=== PATIENT | female | born 2000 | race Hispanic/Latino ===

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

== ENCOUNTER 2021-09-01 17:19 | Emergency (ER) | payer OTHER ==
--- OUTSIDE RECORDS SUMMARY | 2021-09-01 17:24 | XMS REPORT | Continuity of Care Document ---
:2001 Author Organization [facility] Address [address] [place] [address] Care Team Providers Name Role Phone PRACHI HOPE Attending Clinician Unavailable ANDREA Attending Clinician Unavailable Chelly MARTE Attending Clinician Unavailable Aaron MARTE N Attending Clinician Stanley WALKER Attending Clinician Unavailable Rene GONZALEZ, L Attending Clinician Doctor Unassigned, Name Attending Clinician Unavailable Payers Payer Name Policy Type Policy Number Effective Date Expiration Date [facility] [id number] 2013 CHOICE MEDICAID 00:00:00 Problems Condition Condition Condition Status Onset Resolution Last Treating Co mments Source Name Details Category Date Date Treatment Clinician Date Low weight Low weight Disease Active 2018- U nivers 3-20 ity of 00:00: [address] Influenza Influenza Disease Active Uni vers A A 3-20 ity of 00:00: [address] UTI UTI Disease Active 2012-06 Univers (urinary (urinary 2-19 ity of tract tract 00:00: [place] infection) infection) 00 [place] [facility] Branch Allergies, Adverse Reactions, Alerts Allergy Allergy Status Severity Reaction(s) Onset Inactive Treating Comm ents Source Name Type Date Date Clinician NO KNOWN Drug Active Univers ALLERGIE Class ity of [facility] Social History Social Habit Start Date Stop Date Quantity Comments Source Sex Assigned At [facility] Alcohol intake 2019-08-04 2019-08-04 [facility] 00:00:00 00:00:00 [facility] Smoking Status Start Date Stop Date Source Never smoker [facility] Medications Ordered Filled Start Stop Current Ordering Indication Dosage Frequency Signature Comments Components Source Medication Medication Date Date Medication? Clinician (SIG) Name Name cetirizine 2020-0 Yes [id number] 10mg Take 1 U nivers 10 mg 4-20 tablet by ity of tablet 00:00: mouth [place] 00 daily. Medical Branch cetirizine 2020-0 Yes [id number] 10mg Take 1 U nivers 10 mg 4-20 tablet by ity of tablet 00:00: mouth [place] 00 daily. Medical Branch nitrofurant 2020-0 Yes Take by Un ammon oin 50 mg 3-02 mouth. ity of capsule 14:23: [place] [address] Medical Branch nitrofurant 2020-0 Yes Take by Un ammon oin 50 mg 3-02 mouth. ity of capsule 14:23: [address] Branch nitrofurant 2020-0 Yes Take by Un ammon oin 50 mg 3-02 mouth. ity of capsule 14:23: [address] Branch nitrofurant 2020-0 Yes Take by Un ammon oin 50 mg 3-02 mouth. ity of capsule 14:23: [place] [address] Medical Branch hydrocortis 2020-0 Yes [id number] Apply to Univers one 2.5 % 3-02 affected ity of cream 00:00: area(s) 2 [place] 00 (two) Medical times Branch daily. hydrocortis 2020-0 Yes [id number] Apply to Univers one 2.5 % 3-02 affected ity of cream 00:00: area(s) 2 [place] 00 (two) Medical times Branch daily. hydrocortis 2020-0 Yes [id number] Apply to Univers one 2.5 % 3-02 affected ity of cream 00:00: area(s) 2 [place] 00 (two) Medical times Branch daily. hydrocortis 2020-0 Yes [id number] Apply to Univers one 2.5 % 3-02 affected ity of cream 00:00: area(s) 2 [place] 00 (two) Medical times Branch daily. cetirizine 2020-0 2020- No [id number] 10mg Take 1 Univers 10 mg 3-02 04-02 tablet by ity of tablet 00:00: 04:59 mouth [place] 00 :00 daily for Medical 30 days. Branch cetirizine 2020-0 2020- No [id number] 10mg Take 1 Univers 10 mg 3-02 04-02 tablet by ity of tablet 00:00: 04:59 mouth [place] 00 :00 daily for Medical 30 days. Branch tretinoin 2020-0 Yes [id number] Apply to Univers 0.05 % 2-03 area(s) at ity of cream 00:00: bedtime. [place] [facility] Branch clindamycin 2020-0 Yes [id number] Apply to Univers 1 % gel 2-03 affected ity of 00:00: area(s) [place] 00 every Medical morning. Branch tretinoin 2020-0 Yes [id number] Apply to Univers 0.05 % 2-03 area(s) at ity of cream 00:00: bedtime. [place] [facility] clindamycin 2020-0 Yes [id number] Apply to Univers 1 % gel 2-03 affected ity of 00:00: area(s) [place] 00 every Medical morning. Branch tretinoin 2020-0 Yes [id number] Apply to Univers 0.05 % 2-03 area(s) at ity of cream 00:00: bedtime. [place] [facility] clindamycin 2020-0 Yes [id number] Apply to Univers 1 % gel 2-03 affected ity of 00:00: area(s) [place] 00 every Medical morning. Branch tretinoin 2020-0 Yes [id number] Apply to Univers 0.05 % 2-03 area(s) at ity of cream 00:00: bedtime. [place] [facility] clindamycin 2020-0 Yes [id number] Apply to Univers 1 % gel 2-03 affected ity of 00:00: area(s) [place] 00 every Medical morning. Branch tretinoin 2020-0 Yes [id number] Apply to Univers 0.05 % 2-03 area(s) at ity of cream 00:00: bedtime. [place] [facility] clindamycin 2020-0 Yes [id number] Apply to Univers 1 % gel 2-03 affected ity of 00:00: area(s) [place] 00 every Medical morning. Branch tretinoin 2020-0 Yes [id number] Apply to Univers 0.05 % 2-03 area(s) at ity of cream 00:00: bedtime. [place] [facility] clindamycin 2020-0 Yes [id number] Apply to Univers 1 % gel 2-03 affected ity of 00:00: area(s) [place] 00 every Medical morning. Branch amoxicillin 2020-0 Yes Univer s -clavulanat 1-24 ity of e 875-125 00:00: [place] mg per 00 Medical tablet Branch proMETHazin 2020-0 Yes Univer s e 25 mg 1-24 ity of tablet 00:00: 00 Medical Branch amoxicillin 2020-0 Yes Univer s -clavulanat 1-24 ity of e 875-125 00:00: [place] mg per 00 Medical tablet Branch proMETHazin 2020-0 Yes Univer s e 25 mg 1-24 ity of tablet 00:00: 00 Medical Branch amoxicillin 2020-0 Yes Univer s -clavulanat 1-24 ity of e 875-125 00:00: [place] mg per 00 Medical tablet Branch proMETHazin 2020-0 Yes Univer s e 25 mg 1-24 ity of tablet 00:00: 00 Medical Branch amoxicillin 2020-0 Yes Univer s -clavulanat 1-24 ity of e 875-125 00:00: [place] mg per 00 Medical tablet Branch proMETHazin 2020-0 Yes Univer s e 25 mg 1-24 ity of tablet 00:00: Medical Branch No known No Univers medications ity of [facility] Immunizations Ordered Immunization Filled Immunization Date Status Commen ts Source Name Name Meningococcal 2017-02-28 Completed University of Polysaccharide 00:00:00 [place] Medi katelyn (groups A, C, Y and Branc h W-135) conjugate vaccine (MCV4P) Influenza Virus 2017-02-28 Completed Universit y of Vaccine Quad IM 3+ 00:00:00 [facility] Meningococcal 2017-02-28 Completed University of Polysaccharide 00:00:00 [place] Medi katelyn (groups A, C, Y and Branc h W-135) conjugate vaccine (MCV4P) Influenza Virus 2017-02-28 Completed Universit y of Vaccine Quad IM 3+ 00:00:00 [facility] Meningococcal 2017-02-28 Completed University of Polysaccharide 00:00:00 [place] Medi katelyn (groups A, C, Y and Branc h W-135) conjugate vaccine (MCV4P) Influenza Virus 2017-02-28 Completed Universit y of Vaccine Quad IM 3+ 00:00:00 [facility] Meningococcal 2017-02-28 Completed University of Polysaccharide 00:00:00 [place] Medi katelyn (groups A, C, Y and Branc h W-135) conjugate vaccine (MCV4P) Influenza Virus 2017-02-28 Completed Universit y of Vaccine Quad IM 3+ 00:00:00 [facility] Meningococcal 2017-02-28 Completed University of Polysaccharide 00:00:00 [place] Medi katelyn (groups A, C, Y and Branc h W-135) conjugate vaccine (MCV4P) Influenza Virus 2017-02-28 Completed Universit y of Vaccine Quad IM 3+ 00:00:00 [facility] Meningococcal 2017-02-28 Completed University of Polysaccharide 00:00:00 [place] Medi katelyn (groups A, C, Y and Branc h W-135) conjugate vaccine (MCV4P) Influenza Virus 2017-02-28 Completed Universit y of Vaccine Quad IM 3+ 00:00:00 [facility] Meningococcal 2017-02-28 Completed University of Polysaccharide 00:00:00 [place] Medi katelyn (groups A, C, Y and Branc h W-135) conjugate vaccine (MCV4P) Influenza Virus 2017-02-28 Completed Universit y of Vaccine Quad IM 3+ 00:00:00 [facility] Influenza Virus 2016-03-01 Completed Universit y of Vaccine Quad IM 3+ 00:00:00 [facility] Influenza Virus 2016-03-01 Completed Universit y of Vaccine Quad IM 3+ 00:00:00 [facility] Influenza Virus 2016-03-01 Completed Universit y of Vaccine Quad IM 3+ 00:00:00 [facility] Influenza Virus 2016-03-01 Completed Universit y of Vaccine Quad IM 3+ 00:00:00 [facility] Influenza Virus 2016-03-01 Completed Universit y of Vaccine Quad IM 3+ 00:00:00 [facility] Influenza Virus 2016-03-01 Completed Universit y of Vaccine Quad IM 3+ 00:00:00 [facility] Influenza Virus 2016-03-01 Completed Universit y of Vaccine Quad IM 3+ 00:00:00 [facility] Influenza Virus 2015-03-12 Completed Universit y of Vaccine Quad IM 3+ 00:00:00 [facility] Influenza Virus 2015-03-12 Completed Universit y of Vaccine Quad IM 3+ 00:00:00 [facility] Influenza Virus 2015-03-12 Completed Universit y of Vaccine Quad IM 3+ 00:00:00 [facility] Influenza Virus 2015-03-12 Completed Universit y of Vaccine Quad IM 3+ 00:00:00 [facility] Influenza Virus 2015-03-12 Completed Universit y of Vaccine Quad IM 3+ 00:00:00 [facility] Influenza Virus 2015-03-12 Completed Universit y of Vaccine Quad IM 3+ 00:00:00 [facility] Influenza Virus 2015-03-12 Completed Universit y of Vaccine Quad IM 3+ 00:00:00 [facility] Influenza Virus 2014-05-20 Completed Universit y of Vaccine Quad IM 3+ 00:00:00 [facility] Influenza Virus 2014-05-20 Completed Universit y of Vaccine Quad IM 3+ 00:00:00 [facility] Influenza Virus 2014-05-20 Completed Universit y of Vaccine Quad IM 3+ 00:00:00 [facility] Influenza Virus 2014-05-20 Completed Universit y of Vaccine Quad IM 3+ 00:00:00 [facility] Influenza Virus 2014-05-20 Completed Universit y of Vaccine Quad IM 3+ 00:00:00 [facility] Influenza Virus 2014-05-20 Completed Universit y of Vaccine Quad IM 3+ 00:00:00 [facility] Influenza Virus 2014-05-20 Completed Universit y of Vaccine Quad IM 3+ 00:00:00 [facility] Influenza Virus 2013-05-22 Completed Universit y of Vaccine (3+ yrs) 00:00:00 [facility] Influenza Virus 2013-05-22 Completed Universit y of Vaccine (3+ yrs) 00:00:00 [facility] Influenza Virus 2013-05-22 Completed Universit y of Vaccine (3+ yrs) 00:00:00 [facility] Influenza Virus 2013-05-22 Completed Universit y of Vaccine (3+ yrs) 00:00:00 [facility] Influenza Virus 2013-05-22 Completed Universit y of Vaccine (3+ yrs) 00:00:00 [facility] Influenza Virus 2013-05-22 Completed Universit y of Vaccine (3+ yrs) 00:00:00 [facility] Influenza Virus 2013-05-22 Completed Universit y of Vaccine (3+ yrs) 00:00:00 [facility] Influenza Virus 2012-03-25 Completed Universit y of Vaccine 00:00:00 [facility] Meningococcal Vaccine 2012-03-25 Completed Uni versity of 00:00:00 [facility] Tdap 2012-03-25 Completed University of 00:00:00 [facility] Influenza Virus 2012-03-25 Completed Universit y of Vaccine 00:00:00 [facility] Influenza Virus 2012-03-25 Completed Universit y of Vaccine 00:00:00 [facility] Meningococcal Vaccine 2012-03-25 Completed Uni versity of 00:00:00 [facility] Tdap 2012-03-25 Completed University of 00:00:00 [facility] Meningococcal Vaccine 2012-03-25 Completed Uni versity of 00:00:00 [facility] Tdap 2012-03-25 Completed University of 00:00:00 [facility] Influenza Virus 2012-03-25 Completed Universit y of Vaccine 00:00:00 [facility] Meningococcal Vaccine 2012-03-25 Completed Uni versity of 00:00:00 [facility] Tdap 2012-03-25 Completed University of 00:00:00 [facility] Influenza Virus 2012-03-25 Completed Universit y of Vaccine 00:00:00 [facility] Meningococcal Vaccine 2012-03-25 Completed Uni versity of 00:00:00 [facility] Tdap 2012-03-25 Completed University of 00:00:00 [facility] Influenza Virus 2012-03-25 Completed Universit y of Vaccine 00:00:00 [facility] Meningococcal Vaccine 2012-03-25 Completed Uni versity of 00:00:00 [facility] Tdap 2012-03-25 Completed University of 00:00:00 [facility] Influenza Virus 2012-03-25 Completed Universit y of Vaccine 00:00:00 [facility] Meningococcal Vaccine 2012-03-25 Completed Uni versity of 00:00:00 [facility] Tdap 2012-03-25 Completed University of 00:00:00 [facility] HPV 2011-10-13 Completed University of 00:00:00 [facility] HPV 2011-10-13 Completed University of 00:00:00 [facility] HPV 2011-10-13 Completed University of 00:00:00 [facility] HPV 2011-10-13 Completed University of 00:00:00 [facility] HPV 2011-10-13 Completed University of 00:00:00 [facility] HPV 2011-10-13 Completed University of 00:00:00 [facility] HPV 2011-10-13 Completed University of 00:00:00 [facility] HPV 2011-06-15 Completed University of 00:00:00 [facility] HPV 2011-06-15 Completed University of 00:00:00 [facility] HPV 2011-06-15 Completed University of 00:00:00 [facility] HPV 2011-06-15 Completed University of 00:00:00 [facility] HPV 2011-06-15 Completed University of 00:00:00 [facility] HPV 2011-06-15 Completed University of 00:00:00 [facility] HPV 2011-06-15 Completed University of 00:00:00 [facility] HPV 2011-04-17 Completed University of 00:00:00 [facility] Influenza Virus 2011-04-17 Completed Universit y of Vaccine 00:00:00 [facility] HPV 2011-04-17 Completed University of 00:00:00 [facility] HPV 2011-04-17 Completed University of 00:00:00 [facility] Influenza Virus 2011-04-17 Completed Universit y of Vaccine 00:00:00 [facility] Influenza Virus 2011-04-17 Completed Universit y of Vaccine 00:00:00 [facility] HPV 2011-04-17 Completed University of 00:00:00 [facility] Influenza Virus 2011-04-17 Completed Universit y of Vaccine 00:00:00 [facility] HPV 2011-04-17 Completed University of 00:00:00 [facility] Influenza Virus 2011-04-17 Completed Universit y of Vaccine 00:00:00 [facility] HPV 2011-04-17 Completed University of 00:00:00 [facility] Influenza Virus 2011-04-17 Completed Universit y of Vaccine 00:00:00 [facility] HPV 2011-04-17 Completed University of 00:00:00 [facility] Influenza Virus 2011-04-17 Completed Universit y of Vaccine 00:00:00 [facility] Influenza Virus 2010-03-01 Completed Universit y of Vaccine 00:00:00 [facility] Influenza Virus 2010-03-01 Completed Universit y of Vaccine 00:00:00 [facility] Influenza Virus 2010-03-01 Completed Universit y of Vaccine 00:00:00 [facility] Influenza Virus 2010-03-01 Completed Universit y of Vaccine 00:00:00 [facility] Influenza Virus 2010-03-01 Completed Universit y of Vaccine 00:00:00 [facility] Influenza Virus 2010-03-01 Completed Universit y of Vaccine 00:00:00 [facility] Influenza Virus 2010-03-01 Completed Universit y of Vaccine 00:00:00 [facility] H1n1 Vaccine 2009-07-29 Completed University o f 00:00:00 [facility] H1n1 Vaccine 2009-07-29 Completed University o f 00:00:00 [facility] H1n1 Vaccine 2009-07-29 Completed University o f 00:00:00 [facility] H1n1 Vaccine 2009-07-29 Completed University o f 00:00:00 [facility] H1n1 Vaccine 2009-07-29 Completed University o f 00:00:00 [facility] H1n1 Vaccine 2009-07-29 Completed University o f 00:00:00 [facility] H1n1 Vaccine 2009-07-29 Completed University o f 00:00:00 [facility] H1n1 Vaccine 2009-06-28 Completed University o f 00:00:00 [facility] H1n1 Vaccine 2009-06-28 Completed University o f 00:00:00 [facility] H1n1 Vaccine 2009-06-28 Completed University o f 00:00:00 [facility] H1n1 Vaccine 2009-06-28 Completed University o f 00:00:00 [facility] H1n1 Vaccine 2009-06-28 Completed University o f 00:00:00 [facility] H1n1 Vaccine 2009-06-28 Completed University o f 00:00:00 [facility] H1n1 Vaccine 2009-06-28 Completed University o f 00:00:00 [facility] Influenza Virus 2009-02-22 Completed Universit y of Vaccine Nasal 00:00:00 [facility] Influenza Virus 2009-02-22 Completed Universit y of Vaccine Nasal 00:00:00 [facility] Influenza Virus 2009-02-22 Completed Universit y of Vaccine Nasal 00:00:00 [facility] Influenza Virus 2009-02-22 Completed Universit y of Vaccine Nasal 00:00:00 [facility] Influenza Virus 2009-02-22 Completed Universit y of Vaccine Nasal 00:00:00 [facility] Influenza Virus 2009-02-22 Completed Universit y of Vaccine Nasal 00:00:00 [facility] Influenza Virus 2009-02-22 Completed Universit y of Vaccine Nasal 00:00:00 [facility] PPD (TB) 2008-04-14 Completed University of 00:00:00 [facility] PPD (TB) 2008-04-14 Completed University of 00:00:00 [facility] PPD (TB) 2008-04-14 Completed University of 00:00:00 [facility] PPD (TB) 2008-04-14 Completed University of 00:00:00 [facility] PPD (TB) 2008-04-14 Completed University of 00:00:00 [facility] PPD (TB) 2008-04-14 Completed University of 00:00:00 [facility] PPD (TB) 2008-04-14 Completed University of 00:00:00 [facility] Influenza Virus 2008-04-09 Completed Universit y of Vaccine Nasal 00:00:00 [facility] Influenza Virus 2008-04-09 Completed Universit y of Vaccine Nasal 00:00:00 [facility] Influenza Virus 2008-04-09 Completed Universit y of Vaccine Nasal 00:00:00 [facility] Influenza Virus 2008-04-09 Completed Universit y of Vaccine Nasal 00:00:00 [facility] Influenza Virus 2008-04-09 Completed Universit y of Vaccine Nasal 00:00:00 [facility] Influenza Virus 2008-04-09 Completed Universit y of Vaccine Nasal 00:00:00 [facility] Influenza Virus 2008-04-09 Completed Universit y of Vaccine Nasal 00:00:00 [facility] Influenza Virus 2006-03-29 Completed Universit y of Vaccine 00:00:00 [facility] Varicella 2006-03-29 Completed University of (varivax)(chicken 00:00:00 [facility] edical pox) [place] HEPATITIS A 2006-03-29 Completed University of 00:00:00 [facility] Influenza Virus 2006-03-29 Completed Universit y of Vaccine 00:00:00 [facility] Varicella 2006-03-29 Completed University of (varivax)(chicken 00:00:00 [facility] edical pox) Branch HEPATITIS A 2006-03-29 Completed University of 00:00:00 [facility] Influenza Virus 2006-03-29 Completed Universit y of Vaccine 00:00:00 [facility] Varicella 2006-03-29 Completed University of (varivax)(chicken 00:00:00 [facility] edical pox) Branch HEPATITIS A 2006-03-29 Completed University of 00:00:00 [facility] Influenza Virus 2006-03-29 Completed Universit y of Vaccine 00:00:00 [facility] Varicella 2006-03-29 Completed University of (varivax)(chicken 00:00:00 [facility] edical pox) Branch HEPATITIS A 2006-03-29 Completed University of 00:00:00 [facility] Influenza Virus 2006-03-29 Completed Universit y of Vaccine 00:00:00 [facility] Varicella 2006-03-29 Completed University of (varivax)(chicken 00:00:00 [place] [facility] edical pox) Branch HEPATITIS A 2006-03-29 Completed University of 00:00:00 [facility] HEPATITIS A 2006-03-29 Completed University of 00:00:00 [facility] Influenza Virus 2006-03-29 Completed Universit y of Vaccine 00:00:00 [facility] Influenza Virus 2006-03-29 Completed Universit y of Vaccine 00:00:00 [facility] Varicella 2006-03-29 Completed University of (varivax)(chicken 00:00:00 [facility] edical pox) Branch Varicella 2006-03-29 Completed University of (varivax)(chicken 00:00:00 [facility] edical pox) Branch HEPATITIS A 2006-03-29 Completed University of 00:00:00 [facility] MMR 2006-01-11 Completed University of 00:00:00 [facility] MMR 2006-01-11 Completed University of 00:00:00 [facility] MMR 2006-01-11 Completed University of 00:00:00 [facility] MMR 2006-01-11 Completed University of 00:00:00 [facility] MMR 2006-01-11 Completed University of 00:00:00 [facility] MMR 2006-01-11 Completed University of 00:00:00 [facility] MMR 2006-01-11 Completed University of 00:00:00 [facility] MMR 2005-06-12 Completed University of 00:00:00 [facility] Pneumococcal 7 2005-06-12 Completed University of Conjugate, PCV7 00:00:00 [facility] ical (Prevnar7) Branch Polio (IPV/OPV) 2005-06-12 Completed Universit y of 00:00:00 [facility] Varicella 2005-06-12 Completed University of (varivax)(chicken 00:00:00 [facility] edical pox) Branch DTAP 2005-06-12 Completed University of 00:00:00 [facility] HEPATITIS A 2005-06-12 Completed University of 00:00:00 [facility] Hep B, Adol or Pedi 2005-06-12 Completed Unive rsity of Dosage 00:00:00 [facility] MMR 2005-06-12 Completed University of 00:00:00 [facility] Pneumococcal 7 2005-06-12 Completed University of Conjugate, PCV7 00:00:00 [place] Med ical (Prevnar7) Branch Polio (IPV/OPV) 2005-06-12 Completed Universit y of 00:00:00 [facility] Varicella 2005-06-12 Completed University of (varivax)(chicken 00:00:00 [place] M edical pox) Branch DTAP 2005-06-12 Completed University of 00:00:00 [facility] HEPATITIS A 2005-06-12 Completed University of 00:00:00 [facility] Hep B, Adol or Pedi 2005-06-12 Completed Unive rsity of Dosage 00:00:00 [facility] MMR 2005-06-12 Completed University of 00:00:00 [facility] Pneumococcal 7 2005-06-12 Completed University of Conjugate, PCV7 00:00:00 [facility] ical (Prevnar7) Branch Polio (IPV/OPV) 2005-06-12 Completed Universit y of 00:00:00 [facility] Varicella 2005-06-12 Completed University of (varivax)(chicken 00:00:00 [place] M edical pox) Branch DTAP 2005-06-12 Completed University of 00:00:00 [facility] HEPATITIS A 2005-06-12 Completed University of 00:00:00 [facility] Hep B, Adol or Pedi 2005-06-12 Completed Unive rsity of Dosage 00:00:00 [facility] MMR 2005-06-12 Completed University of 00:00:00 [facility] Pneumococcal 7 2005-06-12 Completed University of Conjugate, PCV7 00:00:00 [place] Med ical (Prevnar7) Branch Polio (IPV/OPV) 2005-06-12 Completed Universit y of 00:00:00 [facility] Varicella 2005-06-12 Completed University of (varivax)(chicken 00:00:00 [place] M edical pox) Branch DTAP 2005-06-12 Completed University of 00:00:00 [facility] HEPATITIS A 2005-06-12 Completed University of 00:00:00 [facility] DTAP 2005-06-12 Completed University of 00:00:00 [facility] Hep B, Adol or Pedi 2005-06-12 Completed Unive rsity of Dosage 00:00:00 [facility] MMR 2005-06-12 Completed University of 00:00:00 [facility] Pneumococcal 7 2005-06-12 Completed University of Conjugate, PCV7 00:00:00 [place] [facility] (Prevnar7) [facility] Polio (IPV/OPV) 2005-06-12 Completed Universit y of 00:00:00 [facility] Varicella 2005-06-12 Completed University of (varivax)(chicken 00:00:00 [place] [facility] pox) [facility] HEPATITIS A 2005-06-12 Completed University of 00:00:00 [facility] DTAP 2005-06-12 Completed University of 00:00:00 [facility] HEPATITIS A 2005-06-12 Completed University of 00:00:00 [facility] Hep B, Adol or Pedi 2005-06-12 Completed Unive rsity of Dosage 00:00:00 [facility] MMR 2005-06-12 Completed University of 00:00:00 [facility] Pneumococcal 7 2005-06-12 Completed University of Conjugate, PCV7 00:00:00 [place] [facility] (Prevnar7) [facility] Hep B, Adol or Pedi 2005-06-12 Completed Unive rsity of Dosage 00:00:00 [facility] Polio (IPV/OPV) 2005-06-12 Completed Universit y of 00:00:00 [facility] Varicella 2005-06-12 Completed University of (varivax)(chicken 00:00:00 [place] [facility] pox) [facility] MMR 2005-06-12 Completed [facility] of 00:00:00 [facility] Pneumococcal 7 2005-06-12 Completed University of Conjugate, PCV7 00:00:00 [facility] (Prevnar7) [facility] Polio (IPV/OPV) 2005-06-12 Completed Universit y of 00:00:00 [facility] Varicella 2005-06-12 Completed University of (varivax)(chicken 00:00:00 [facility] pox) [facility] DTAP 2005-06-12 Completed [facility] of 00:00:00 [facility] HEPATITIS A 2005-06-12 Completed University of 00:00:00 [facility] Hep B, Adol or Pedi 2005-06-12 Completed Unive rsity of Dosage 00:00:00 [facility] DTAP 2005-03-06 Completed University of 00:00:00 [facility] DTAP 2005-03-06 Completed [facility] 00:00:00 [facility] DTAP 2005-03-06 Completed [facility] 00:00:00 [facility] DTAP 2005-03-06 Completed [facility] 00:00:00 [facility] DTAP 2005-03-06 Completed [facility] 00:00:00 [facility] DTAP 2005-03-06 Completed [facility] 00:00:00 [facility] DTAP 2005-03-06 Completed [facility] 00:00:00 [facility] Polio (IPV/OPV) 2004-07-23 Completed Universit y of 00:00:00 [facility] Polio (IPV/OPV) 2004-07-23 Completed [facility]it y of 00:00:00 [facility] Polio (IPV/OPV) 2004-07-23 Completed Universit y of 00:00:00 [facility] Polio (IPV/OPV) 2004-07-23 Completed Universit y of 00:00:00 [facility] Polio (IPV/OPV) 2004-07-23 Completed Universit y of 00:00:00 [facility] Polio (IPV/OPV) 2004-07-23 Completed Universit y of 00:00:00 [facility] Polio (IPV/OPV) 2004-07-23 Completed Universit y of 00:00:00 [facility] Polio (IPV/OPV) 2003-10-02 Completed Universit y of 00:00:00 [facility] Polio (IPV/OPV) 2003-10-02 Completed Universit y of 00:00:00 [facility] Polio (IPV/OPV) 2003-10-02 Completed Universit y of 00:00:00 [facility] Polio (IPV/OPV) 2003-10-02 Completed Universit y of 00:00:00 [facility] Polio (IPV/OPV) 2003-10-02 Completed Universit y of 00:00:00 [facility] Polio (IPV/OPV) 2003-10-02 Completed Universit y of 00:00:00 [facility] Polio (IPV/OPV) 2003-10-02 Completed Universit y of 00:00:00 [facility] Polio (IPV/OPV) 2003-07-25 Completed Universit y of 00:00:00 [facility] Polio (IPV/OPV) 2003-07-25 Completed Universit y of 00:00:00 [facility] Polio (IPV/OPV) 2003-07-25 Completed Universit y of 00:00:00 [facility] Polio (IPV/OPV) 2003-07-25 Completed Universit y of 00:00:00 [facility] Polio (IPV/OPV) 2003-07-25 Completed Universit y of 00:00:00 [facility] Polio (IPV/OPV) 2003-07-25 Completed Universit y of 00:00:00 [facility] Polio (IPV/OPV) 2003-07-25 Completed Universit y of 00:00:00 [facility] DTAP 2003-03-30 Completed [facility] of 00:00:00 [facility] DTAP 2003-03-30 Completed [facility] 00:00:00 [facility] DTAP 2003-03-30 Completed [facility] 00:00:00 [facility] DTAP 2003-03-30 Completed [facility] 00:00:00 [facility] DTAP 2003-03-30 Completed [facility] 00:00:00 [facility] DTAP 2003-03-30 Completed [facility] 00:00:00 [facility] DTAP 2003-03-30 Completed [facility] 00:00:00 [facility] Polio (IPV/OPV) 2002-11-08 Completed Universit y of 00:00:00 [facility] Polio (IPV/OPV) 2002-11-08 Completed Universit y of 00:00:00 [facility] Polio (IPV/OPV) 2002-11-08 Completed Universit y of 00:00:00 [facility] Polio (IPV/OPV) 2002-11-08 Completed [facility]it y of 00:00:00 [facility] Polio (IPV/OPV) 2002-11-08 Completed Universit y of 00:00:00 [facility] Polio (IPV/OPV) 2002-11-08 Completed [facility]it y of 00:00:00 [facility] Polio (IPV/OPV) 2002-11-08 Completed [facility]it [facility] of 00:00:00 [facility] Polio (IPV/OPV) 2002-07-26 Completed [facility]it y of 00:00:00 [facility] Polio (IPV/OPV) 2002-07-26 Completed Universit y of 00:00:00 [facility] Polio (IPV/OPV) 2002-07-26 Completed Universit y of 00:00:00 [facility] Polio (IPV/OPV) 2002-07-26 Completed [facility]it y of 00:00:00 [facility] Polio (IPV/OPV) 2002-07-26 Completed Universit y of 00:00:00 [facility] Polio (IPV/OPV) 2002-07-26 Completed Universit y of 00:00:00 [facility] Polio (IPV/OPV) 2002-07-26 Completed Universit y of 00:00:00 [facility] MMR 2002-03-04 Completed [facility] 00:00:00 [facility] MMR 2002-03-04 Completed [facility] 00:00:00 [facility] MMR 2002-03-04 Completed [facility] 00:00:00 [facility] MMR 2002-03-04 Completed [facility] 00:00:00 [facility] MMR 2002-03-04 Completed [facility] 00:00:00 [facility] MMR 2002-03-04 Completed [facility] of 00:00:00 [facility] MMR 2002-03-04 Completed [facility] of 00:00:00 [facility] Polio (IPV/OPV) 2001 Completed Universit y of 00:00:00 [facility] Polio (IPV/OPV) 2001 Completed Universit y of 00:00:00 [facility] Polio (IPV/OPV) 2001 Completed Universit y of 00:00:00 [facility] Polio (IPV/OPV) 2001 Completed Universit y of 00:00:00 [facility] Polio (IPV/OPV) 2001 Completed [facility]it y of 00:00:00 [facility] Polio (IPV/OPV) 2001 Completed Universit y of 00:00:00 [facility] Polio (IPV/OPV) 2001 Completed [facility]it y of 00:00:00 [facility] Polio (IPV/OPV) 2001 Completed [facility]it y of 00:00:00 [facility] DTAP 2001 Completed [facility] of 00:00:00 [facility] Polio (IPV/OPV) 2001 Completed Universit y of 00:00:00 [facility] DTAP 2001 Completed University of 00:00:00 [facility] Polio (IPV/OPV) 2001 Completed Universit y of 00:00:00 [facility] DTAP 2001 Completed [facility] of 00:00:00 [facility] Polio (IPV/OPV) 2001 Completed Universit y of 00:00:00 [facility] DTAP 2001 Completed [facility] of 00:00:00 [facility] DTAP 2001 Completed [facility] of 00:00:00 [facility] Polio (IPV/OPV) 2001 Completed Universit y of 00:00:00 [facility] DTAP 2001 Completed [facility] of 00:00:00 [facility] Polio (IPV/OPV) 2001 Completed Universit [facility] of 00:00:00 [facility] Polio (IPV/OPV) 2001 Completed [facility]it [facility] of 00:00:00 [facility] DTAP 2001 Completed [facility] of 00:00:00 [facility] Pneumococcal 7 2001 Completed University of Conjugate, PCV7 00:00:00 [facility] (Prevnar7) [facility] Polio (IPV/OPV) 2001 Completed Universit [facility] of 00:00:00 [facility] DTAP 2001 Completed [facility] of 00:00:00 [facility] HIB 4 Dose Schedule 2001 Completed Unive rsity of 00:00:00 [facility] Pneumococcal 7 2001 Completed University of Conjugate, PCV7 00:00:00 [facility] (Prevnar7) [facility] Polio (IPV/OPV) 2001 Completed Universit [facility] of 00:00:00 [facility] DTAP 2001 Completed [facility] of 00:00:00 [facility] HIB 4 Dose Schedule 2001 Completed Unive rsity of 00:00:00 [facility] Pneumococcal 7 2001 Completed University of Conjugate, PCV7 00:00:00 [facility] (Prevnar7) [facility] Polio (IPV/OPV) 2001 Completed Universit [facility] of 00:00:00 [facility] DTAP 2001 Completed [facility] of 00:00:00 [facility] HIB 4 Dose Schedule 2001 Completed Unive rsity of 00:00:00 [facility] Pneumococcal 7 2001 Completed University of Conjugate, PCV7 00:00:00 [facility] ical (Prevnar7) Branch Polio (IPV/OPV) 2001 Completed Universit y of 00:00:00 [facility] DTAP 2001 Completed [facility] of 00:00:00 [facility] DTAP 2001 Completed University of 00:00:00 [facility] HIB 4 Dose Schedule 2001 Completed Unive rsity of 00:00:00 [facility] Pneumococcal 7 2001 Completed University of Conjugate, PCV7 00:00:00 [facility] (Prevnar7) [place] Polio (IPV/OPV) 2001 Completed Universit y of 00:00:00 [facility] HIB 4 Dose Schedule 2001 Completed Unive rsity of 00:00:00 [facility] DTAP 2001 Completed University of 00:00:00 [facility] HIB 4 Dose Schedule 2001 Completed Unive rsity of 00:00:00 [facility] Pneumococcal 7 2001 Completed University of Conjugate, PCV7 00:00:00 [facility] (Prevnar7) Branch Polio (IPV/OPV) 2001 Completed Universit y of 00:00:00 [facility] Pneumococcal 7 2001 Completed University of Conjugate, PCV7 00:00:00 [facility] (Prevnar7) Branch Polio (IPV/OPV) 2001 Completed Universit y of 00:00:00 [facility] DTAP 2001 Completed University of 00:00:00 [facility] HIB 4 Dose Schedule 2001 Completed Unive rsity of 00:00:00 [facility] Polio (IPV/OPV) 2001 Completed Universit y of 00:00:00 [facility] DTAP 2001 Completed [facility] of 00:00:00 [facility] HIB 4 Dose Schedule 2001 Completed Unive rsity of 00:00:00 [facility] Polio (IPV/OPV) 2001 Completed Universit y of 00:00:00 [facility] DTAP 2001 Completed [facility] of 00:00:00 [facility] HIB 4 Dose Schedule 2001 Completed Unive rsity of 00:00:00 [facility] Polio (IPV/OPV) 2001 Completed Universit y of 00:00:00 [facility] DTAP 2001 Completed [facility] of 00:00:00 [facility] HIB 4 Dose Schedule 2001 Completed Unive rsity of 00:00:00 [facility] Polio (IPV/OPV) 2001 Completed Universit y of 00:00:00 [facility] DTAP 2001 Completed University of 00:00:00 [facility] DTAP 2001 Completed University of 00:00:00 [facility] HIB 4 Dose Schedule 2001 Completed Unive rsity of 00:00:00 [facility] Polio (IPV/OPV) 2001 Completed Universit y of 00:00:00 [facility] HIB 4 Dose Schedule 2001 Completed Unive rsity of 00:00:00 [facility] DTAP 2001 Completed University of 00:00:00 [facility] HIB 4 Dose Schedule 2001 Completed Unive rsity of 00:00:00 [facility] Polio (IPV/OPV) 2001 Completed Universit y of 00:00:00 [facility] Polio (IPV/OPV) 2001 Completed Universit y of 00:00:00 [facility] DTAP 2001 Completed University of 00:00:00 [facility] HIB 4 Dose Schedule 2001 Completed Unive rsity of 00:00:00 [facility] Hep B, Adol or Pedi 2001 Completed Unive rsity of Dosage 00:00:00 [facility] Hep B, Adol or Pedi 2001 Completed Unive rsity of Dosage 00:00:00 [facility] Hep B, Adol or Pedi 2001 Completed Unive rsity of Dosage 00:00:00 [facility] Hep B, Adol or Pedi 2001 Completed Unive rsity of Dosage 00:00:00 [facility] Hep B, Adol or Pedi 2001 Completed Unive rsity of Dosage 00:00:00 [facility] Hep B, Adol or Pedi 2001 Completed Unive rsity of Dosage 00:00:00 [facility] Hep B, Adol or Pedi 2001 Completed Unive rsity of Dosage 00:00:00 [facility] Hep B, Adol or Pedi 2001 Completed Unive rsity of Dosage 00:00:00 [facility] Hep B, Adol or Pedi 2001 Completed Unive rsity of Dosage 00:00:00 [facility] Hep B, Adol or Pedi 2001 Completed Unive rsity of Dosage 00:00:00 [facility] Hep B, Adol or Pedi 2001 Completed Unive rsity of Dosage 00:00:00 [facility] Hep B, Adol or Pedi 2001 Completed Unive rsity of Dosage 00:00:00 [facility] Hep B, Adol or Pedi 2001 Completed Unive rsity of Dosage 00:00:00 [facility] Hep B, Adol or Pedi 2001 Completed Unive rsity of Dosage 00:00:00 [facility] Vital Signs Vital Name Observation Time Observation Value Comments Source Systolic blood 2019-08-04 14:22:00 115 mm[Hg] Univer sity of pressure [facility] Diastolic blood 2019-08-04 14:22:00 78 mm[Hg] Unive rsity of pressure [facility] Heart rate 2019-08-04 14:22:00 68 /min [facility] Body temperature 2019-08-04 14:22:00 36.11 [facility] Respiratory rate 2019-08-04 14:22:00 18 /min [facility] Body height 2019-08-04 14:22:00 162.6 cm [facility] Body weight 2019-08-04 14:22:00 43.364 kg [facility] BMI 2019-08-04 14:22:00 16.41 kg/m2 [facility] Oxygen saturation in 2019-08-04 14:22:00 99 /min [facility] Arterial blood by [facility] Pulse oximetry [place] Body height 2019-07-07 19:47:00 162.6 cm [facility] Body weight 2019-07-07 19:47:00 43.863 kg [facility] BMI 2019-07-07 19:47:00 16.60 kg/m2 [facility] Procedures Procedure Date / Time Performed Performing Clinician Sour e ASSIGNMENT OF BENEFITS 2019-07-07 19:14:03 Doctor Unassigned, No [facility] Encounters Start End Encounter Admission Attending Care Care Encounter Source Date/Time Date/Time Type Type Clinicians Facility Department ID 2020-10-25 2020-10-25 Outpatient Lenora HOPE [facility] [id number] Univers 09:40:00 [facility] 2020-10-02 2020-10-02 Outpatient Lenora HOPE [facility] [id number] Univers 09:40:00 09:40:00 [facility] 2020-01-05 2020-01-05 Outpatient Lenora MENDEZ [facility] [id number] Univers 10:00:00 10:00:00 TAO [id number] [facility] 2020-01-05 2020-01-05 Outpatient Lenora MENDEZ [facility] [id number] Univers 10:00:00 10:00:00 [facility]O [facility] 2019-09-28 2019-09-28 [facility] [id number] 00:00:00 00:00:00 Amber Orlando [id number] Pediatric [id number] Clinic [id number] 2019-09-28 2019-09-28 [facility] [id number] Univers 00:00:00 00:00:00 Amber Orlando [id number] [facility]y [facility] [id number] [facility] [id number] [address] 2019-09-19 2019-09-19 Refill Aaron [facility] [id number] Univers 00:00:00 00:00:00 Arely Becker [id number] ity [facility] 4[facility]2.7.2.686 [id number] [facility] 225 Branch 2019-08-04 2019-08-04 [facility] [id number] Univers 08:15:44 08:30:35 Visit Arely Becker [id number] ity of [facility] 4.2.7.2.686 [facility] [id number] [place] [address] Branch 2019-08-04 2019-08-04 Outpatient R AARON [facility] [id number] Univers 08:20:00 08:20:00 ARELY [id number] ity [facility] 2019-08-04 2019-08-04 Outpatient R AARON [facility] [id number] Univers 08:20:00 08:20:00 ARELY taylory [facility] 2019-07-07 2019-07-07 Office [facility] [id number] Univers 13:13:58 13:59:59 Visit Lindsey MCCONNELL [id number] ity of [place] 4.2.7.2.686 [id number] AND [facility] 028 Branch [facility] 2019-07-07 2019-07-07 Orders Doctor CARLIOT [id number] Univers 00:00:00 00:00:00 Only Unassigned, ALFREDA [id number] ity of [facility] 4.2.7.2.[id number] [facility] 009 Branch Results This patient has no known results.
--- NOTE | 2021-09-01 18:15 | ER ---
Nurse's Notes [facility] Name: Sapna De Anda Age: 21 yrs Sex: Female : 2000 Arrival Date: 09/01/2021 Time: 17:23 Bed 12 Private MD: Diagnosis: Laceration without foreign body of left wrist Presentation: 09/01 17:32 Chief complaint: Patient states: she was attempting to open a package today with a box ap3 cutter when the box liner slipped and she inflicted a laceration to her left wrist. Coronavirus screen: At this time, the client does not indicate any symptoms associated with coronavirus-19. Ebola Screen: No symptoms or risks identified at this time. Complicating Factors: laceration to left wrist. Initial Sepsis Screen: Does the patient meet any 2 criteria? No. Patient's initial sepsis screen is negative. Does the patient have a suspected source of infection? No. Patient's initial sepsis screen is negative. Risk Assessment: Do you want to hurt yourself or someone else? Patient reports no desire to harm self or others. Onset of symptoms was September 01, 2021 at 15:30. 17:32 Method Of Arrival: Ambulatory ap3 17:32 Acuity: ADALBERTO 3 ap3 Triage Assessment: 17:35 General: Appears in no apparent distress. Behavior is calm, cooperative, appropriate ap3 for age. Pain: Denies pain. Injury Description: Laceration sustained to left wrist is clean, 2.6 to 7.5 cm long, not bleeding, was sustained 2-4 hours ago. is bleeding a small amount. [employer]: 17:35 LMP N/A - control method ap3 Historical: - Allergies: 17:34 Bactrim DS; ap3 - Home Meds: 17:34 unknown antibiotic for UTI [Active]; ap3 - PMHx: 17:34 Anemia; ap3 - Immunization history:: Adult Immunizations unknown, Last tetanus immunization: unknown. - Social history:: Smoking status: Patient denies any tobacco usage or history of. Screenin:35 Abuse screen: Denies threats or abuse. Nutritional screening: No deficits noted. ap3 Tuberculosis screening: No symptoms or risk factors identified. 18:00 Fall Risk Total [place] Fall Scale indicates No Risk (0-24 pts). ll1 Assessment: 17:36 Musculoskeletal:. ap3 18:00 Reassessment: No changes from previously documented assessment. Patient and/or family ll1 updated on plan of care and expected duration. Pain level reassessed. Patient is alert, oriented x 3, equal unlabored respirations, skin warm/dry/pink. Derm: Wound noted left wrist Wound is <3 cm laceration L wrist, accident at work. Vital Signs: 17:32 BP 129 / 89; Pulse 95; Resp 15; Temp 99.1; Pulse Ox 99% ; Weight 44 kg; Height 5 ft. 4 ap3 in. (162.56 cm); 18:20 BP 120 / 82; Pulse 92; Resp 15; Pulse Ox 99% ; ll1 17:32 Body Mass Index 16.65 (44.00 kg, 162.56 cm) ap3 ED Course: 17:23 Patient arrived in ED. es 17:32 Kris Maldonado PA is PHCP. cp 17:32 [place] Vaughan MD is Attending Physician. cp 17:34 Triage completed. ap3 17:35 Arm band placed on right wrist. ap3 17:40 Deb Mo, KEENA is Primary Nurse. ll1 18:00 Patient has correct armband on for positive identification. Bed in low position. Call ll1 light in reach. Side rails up X 1. Cardiac monitoring not applicable on this patient. 18:42 No provider procedures requiring assistance completed. Patient did not have IV access ll1 during this emergency room visit. Administered Medications: 17:59 Drug: Lidocaine-Epinephrine -1%: (1:100,000) 10 ml {Note: by Mohan Maldonado for suture repair. 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 Exp: ll1 10/22/2022. Lot #: [id number]. } Route: IM; Site: left deltoid; 18:43 Follow up: Response: No adverse reaction ll1 Outcome: 18:15 Discharge ordered by . cp 18:25 Patient left the ED. ll1 18:42 Discharged to home ambulatory. ll1 18:42 Condition: stable 18:42 Discharge instructions given to patient, Instructed on discharge instructions, follow up and referral plans. wound care, Demonstrated understanding of instructions, follow-up care, wound care. Signatures: Dara Salinas Corey, PA PA cp Prokisch, Amanda RN RN ap3 Deb Mo RN RN ll1
--- NOTE | 2021-09-01 18:15 | EDPHYS ---
Physician Documentation [facility] Name: Sapna De Adna Age: 21 yrs Sex: Female : 2000 Arrival Date: 09/01/2021 Time: 17:23 Bed 12 Private MD: ED Physician Orlando Vaughan HPI: 09/01 17:45 This 21 yrs old Female presents to ER via Ambulatory with complaints of cp Laceration. 17:45 The patient has a laceration occurred at home, and there are no complicating factors. cp The injury was using box bender to open package. The laceration(s) is(are) located on the left wrist volar side. Onset: The symptoms/episode began/occurred just prior to arrival. Associated signs and symptoms: The patient has no apparent associated signs or symptoms. 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 - Social history:: Smoking status: Patient denies any tobacco usage or history of. ROS: 17:50 Skin: Positive for laceration(s), of the volar side of left wrist. cp Exam: 17:55 Constitutional: The patient appears in no acute distress, alert, awake, comfortable, cp non-toxic, well developed, well nourished. 17:55 Head/Face: Normocephalic, atraumatic. cp 17:55 Chest/axilla: Inspection: normal. 17:55 Cardiovascular: Rate: normal, Pulses: Pulses are 2+ in left radial artery. 17:55 Respiratory: the patient does not display signs of respiratory distress, Respirations: normal, no use of accessory muscles, no retractions, labored breathing, is not present. 17:55 Skin: injury, laceration(s), the wound is approximately 4 cm(s), of the volar side of left wrist, that can be described as clean, no foreign body, linear, with mild bleeding. 17:55 Neuro: Motor: full, active ROM left hand and left wrist, Sensation: normal of left hand and left wrist. Vital Signs: 17:32 BP 129 / 89; Pulse 95; Resp 15; Temp 99.1; Pulse Ox 99% ; Weight 44 kg; Height 5 ft. 4 ap3 in. (162.56 cm); 18:20 BP 120 / 82; Pulse 92; Resp 15; Pulse Ox 99% ; ll1 17:32 Body Mass Index 16.65 (44.00 kg, 162.56 cm) ap3 Laceration: 18:13 Wound Repair of 4cm ( 1.6in ) subcutaneous laceration to volar side of left wrist. cp Linear shaped.. Distal neuro/vascular/tendon intact. Anesthesia: Wound infiltrated with 3 mls of 1% lidocaine w/ Epi. Wound prep: Wound irrigation by me. Skin closed with 1 4-0 Prolene using running sutures and sterile technique. Dressed with Bacitracin, 4x4's. Patient tolerated well. MDM: 17:48 Patient medically screened. cp 18:00 Differential diagnosis: superficial laceration, tendon injury, vascular injury. cp 18:15 Data reviewed: vital signs, nurses notes. cp 18:15 Counseling: I had a detailed discussion with the patient and/or guardian regarding: the cp historical points, exam findings, and any diagnostic results supporting the discharge/admit diagnosis, to return to the emergency department if symptoms worsen or persist or if there are any questions or concerns that arise at home. Response to treatment: the patient's symptoms have markedly improved after treatment, and as a result, I will discharge patient. 09/01 17:35 Order name: Dressing - Wound; Complete Time: 18:20 cp 09/01 17:35 Order name: Gloves, Sterile; Complete Time: 17:59 cp 09/01 17:35 Order name: Setup Suture Tray; Complete Time: 17:40 cp Administered Medications: 17:59 Drug: Lidocaine-Epinephrine -1%: (1:100,000) 10 ml {Note: by Mohan Maldonado for suture repair. 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 Exp: ll1 10/22/2022. Lot #: [id number]. } Route: IM; Site: left deltoid; 18:43 Follow up: Response: No adverse reaction ll1 Disposition: 18:48 Co-signature as Attending Physician, Orlando Vaughan MD. rn Disposition Summary: 09/01/21 18:15 Discharge Ordered Location: Home cp Problem: new cp Symptoms: have improved cp Condition: Stable cp Diagnosis - Laceration without foreign body of left wrist cp Followup: cp - With: Private Physician - When: 7 - 10 days - Reason: Staple/Suture removal Discharge Instructions: - Discharge Summary Sheet cp - Laceration Care, Adult cp Forms: - Medication Reconciliation Form cp - Thank You Letter cp - Antibiotic Education cp - Prescription Opioid Use cp Signatures: Orlando Vaughan MD MD rn Kris Maldonado PA PA cp Prokisch, Amanda RN RN ap3 Deb Mo RN RN ll1
[2021-09-01 19:03] VITALS: BP 129/89; TEMP 99.1; O2SAT 99
== END 2021-09-01 18:25 | disposition home or self-care (01) ==
LOC: ER 17:19
PROC: 0JQH0ZZ Repair Left Lower Arm Subcutaneous Tissue and Fascia, Open Approach (ICD-10-PCS; principal; 2021-09-01)
DX: S61.512A Laceration without foreign body of left wrist, initial encounter (principal); W27.8XXA Contact with other nonpowered hand tool, initial encounter; Z23 Encounter for immunization; Z88.1 Allergy status to other antibiotic agents
CPT/HCPCS: 90471; 99283

== ENCOUNTER 2022-07-17 20:51 | Emergency (ER) | payer OTHER ==
--- OUTSIDE RECORDS SUMMARY | 2022-07-17 20:57 | XMS REPORT | Continuity of Care Document ---
:2000 Author Organization [facility] t Address [address] [place] [address] Care Team Providers Name Role Phone Arely Walker MD Primary Care Physician Unavailable JANIS INIGUEZ Attending Clinician Unavailable Candelario Celestin MD Attending Clinician [phone] Phyllis Diaz PA-C Attending Clinician PHYLLIS DIAZ Attending Clinician Unavailable Janis Irwin Attending Clinician Pob, [facility] Main Attending Clinician Unavailable V[facility]-Lab Attending Clinician Unavailable Beny Olivas Attending Clinician BENY JONES Attending Clinician Unavailable Doctor Unassigned, [place] Attending Clinician Unavailable ROSALIO Attending Clinician Unavailable PRACHI HOPE Attending Clinician Unavailable TAO MENDEZ Attending Clinician Unavailable Amber Spaulding MD Attending Clinician Unavailable Arely Walker MD Attending Clinician ARELY WALKER Attending Clinician Unavailable Linsdey Leonard Attending Clinician BENY JONES Admitting Clinician Unavailable ROSALIO Admitting Clinician Unavailable Payers Payer Name Policy Type Policy Number Effective Date Expiration Date Formerly [facility] [id number] 2013 [place] 00:00:00 Problems Condition Condition Condition Status Onset Resolution Last Treating Co mments Source Name Details Category Date Date Treatment Clinician Date Low weight Low weight Disease Active U nivers 3-20 ity of 00:00: [place] 00 Medical Branch Influenza Influenza Disease Active Uni vers A A 3-20 ity of 00:00: [place] 00 Medical Branch UTI UTI Disease Active 2012-06 Univers (urinary (urinary 2-19 ity of tract tract 00:00: [place] infection) infection) 00 Me dical Branch Allergies, Adverse Reactions, Alerts Allergy Allergy Status Severity Reaction(s) Onset Inactive Treating Comm ents Source Name Type Date Date Clinician AMOXICIL DRUG Active High Rash Univers BERT INGREDI 5-12 ity of 00:00: [place] 00 Medical Branch Amoxicil Propensi Active Shortness of Univers bert ty to Breath 5-12 ity of adverse 00:00: [place] reaction 00 Medical s Branch Social History Social Habit Start Date Stop Date Quantity Comments Source Exposure to 2022-06-03 2022-06-13 Not sure [facility] SARS-CoV-2 (event) 00:00:00 16:12:00 Medica l Branch Alcohol intake 2022-06-13 2022-06-13 0 /d [facility] 00:00:00 00:00:00 Medical Branch Sex Assigned At [birth year] [facility] y of [place] 00:00:00 00:00:00 Medical Branch Smoking Status Start Date Stop Date Source Never smoked tobacco [facility] Medications Ordered Filled Start Stop Current Ordering Indication Dosage Frequency Signature Comments Components Source Medication Medication Date Date Medication? Clinician (SIG) Name Name tretinoin Yes [id number] Apply to Univers 0.05 % 1-10 affected ity of cream 00:00: area(s) at [place] 00 bedtime. Medical Branch tretinoin Yes [id number] Apply to Univers 0.05 % 1-10 affected ity of cream 00:00: area(s) at [place] 00 bedtime. Medical Branch doxycycline 2022- Yes [id number] 100mg Take 1 Univers monohydrate - 04-11 capsule by i ty of 100 mg 00:00: 04:59 mouth in [place] capsule 00 :00 the Medical morning Branch and 1 capsule in the evening. Do all this for 90 days. doxycycline 2023-0 2023- Yes [id number] 100mg Take 1 Univers monohydrate 1-10 04-11 capsule by i ty of 100 mg 00:00: 04:59 mouth in [place] capsule 00 :00 the Medical morning Branch and 1 capsule in the evening. Do all this for 90 days. potassium 2021-0 Yes 1080mg Take 1 Univ ers citrate 10 9-06 tablet by ity of mEq (08 00:00: mouth in [place] mg) SR 00 the Medical tablet morning. Branch potassium 2021-0 Yes 1080mg Take 1 Univ ers citrate 10 9-06 tablet by ity of mEq (08 00:00: mouth in [place] mg) SR 00 the Medical tablet morning. Branch potassium 2021-0 Yes 1080mg Take 1 Univ ers citrate 10 9-06 tablet by ity of mEq ( 00:00: mouth in [place] mg) SR 00 the Medical tablet morning. Branch potassium 2021-0 Yes 1080mg Take 1 Univ ers citrate 10 9-06 tablet by ity of mEq ( 00:00: mouth in [place] mg) SR 00 the Medical tablet morning. Branch potassium 2021-0 Yes 1080mg Take 1 Univ ers citrate 10 9-06 tablet by ity of mEq ( 00:00: mouth in [place] mg) SR 00 the Medical tablet morning. Branch potassium 2021-0 Yes 1080mg Take 1 Univ ers citrate 10 9-06 tablet by ity of mEq ( 00:00: mouth in [place] mg) SR 00 the Medical tablet morning. Branch Nitrofurant 2021-0 Yes 100mg Take 1 Univers oin&Nit. 5-12 capsule by ity o f Macrocryst 00:00: mouth as [place] as (MACROBID) 00 needed Medical 100 mg (post Branch capsule coital infection) . Nitrofurant 2021-0 Yes 100mg Take 1 Univers oin&Nit. 5-12 capsule by ity o f Macrocryst 00:00: mouth as [place] as (MACROBID) 00 needed Medical 100 mg (post Branch capsule coital infection) . Nitrofurant 2021-0 Yes 100mg Take 1 Univers oin&Nit. 5-12 capsule by ity o f Macrocryst 00:00: mouth as [place] as (MACROBID) 00 needed Medical 100 mg (post Branch capsule coital infection) . Nitrofurant Yes [id number] 100mg Take 1 Univers oin&Nit. 5-12 capsule by ity o f Macrocryst 00:00: mouth as [place] as (MACROBID) 00 needed Medical 100 mg (post Branch capsule coital infection) . Nitrofurant Yes [id number] 100mg Take 1 Univers oin&Nit. 5-12 capsule by ity o f Macrocryst 00:00: mouth as [place] as (MACROBID) 00 needed Medical 100 mg (post Branch capsule coital infection) . Nitrofurant Yes [id number] 100mg Take 1 Univers oin&Nit. 5-12 capsule by ity o f Macrocryst 00:00: mouth as [place] as (MACROBID) 00 needed Medical 100 mg (post Branch capsule coital infection) . Nitrofurant Yes [id number] 100mg Take 1 Univers oin&Nit. 5-12 capsule by ity o f Macrocryst 00:00: mouth as [place] as (MACROBID) 00 needed Medical 100 mg (post Branch capsule coital infection) . Nitrofurant Yes [id number] 100mg Take 1 Univers oin&Nit. 5-12 capsule by ity o f Macrocryst 00:00: mouth as [place] as (MACROBID) 00 needed Medical 100 mg (post Branch capsule coital infection) . cetirizine 2021- No [id number] 10mg Take 1 Univers 10 mg 09-21 tablet by ity of tablet 00:00: 00:00 mouth [place] 00 :00 daily. Medical Branch hydrocortis 2021- No [id number] Apply to Univers one 2.5 % 08-03 affected ity o f cream 00:00: 00:00 area(s) 2 [place] 00 :00 (two) Medical times Branch daily. tretinoin 2021- No [id number] Apply to Univers 0.05 % 07-07 area(s) at ity of cream 00:00: 00:00 bedtime. 00 :00 Medical Branch clindamycin 2021- No [id number] Apply to Univers 1 % gel 07-07 affected ity of 00:00: 00:00 area(s) [place] 00 :00 every Medical morning. Branch amoxicillin 0 2021- No Unive rs -clavulanat 06-27 ity of e [id number] 00:00: 00:00 [place] mg per 00 :00 Medical tablet Branch proMETHazin 2019-0 2021- No Unive rs e 25 mg 06-27 ity of tablet 00:00: 00:00 [place] 00 :00 Medical Branch Immunizations Ordered Immunization Filled Immunization Date Status Commen ts Source Name Name SARS-COV-2 COVID-19 2020-10-25 Completed Unive rsity of PFIZER VACCINE 00:00:00 [facility] SARS-COV-2 COVID-19 2020-10-25 Completed Unive rsity of PFIZER VACCINE 00:00:00 [facility] SARS-COV-2 COVID-19 2020-10-25 Completed Unive rsity of PFIZER VACCINE 00:00:00 [facility] SARS-COV-2 COVID-19 2020-10-25 Completed Unive rsity of PFIZER VACCINE 00:00:00 [facility] SARS-COV-2 COVID-19 2020-10-25 Completed Unive rsity of PFIZER VACCINE 00:00:00 [facility] SARS-COV-2 COVID-19 2020-10-25 Completed Unive rsity of PFIZER VACCINE 00:00:00 [facility] SARS-COV-2 COVID-19 2020-10-25 Completed Unive rsity of PFIZER VACCINE 00:00:00 [facility] SARS-COV-2 COVID-19 2020-10-25 Completed Unive rsity of PFIZER VACCINE 00:00:00 [facility] SARS-COV-2 COVID-19 2020-10-02 Completed Unive rsity of PFIZER VACCINE 00:00:00 [facility] SARS-COV-2 COVID-19 2020-10-02 Completed Unive rsity of PFIZER VACCINE 00:00:00 [facility] SARS-COV-2 COVID-19 2020-10-02 Completed Unive rsity of PFIZER VACCINE 00:00:00 [facility] SARS-COV-2 COVID-19 2020-10-02 Completed Unive rsity of PFIZER VACCINE 00:00:00 [facility] SARS-COV-2 COVID-19 2020-10-02 Completed Unive rsity of PFIZER VACCINE 00:00:00 [facility] SARS-COV-2 COVID-19 2020-10-02 Completed Unive rsity of PFIZER VACCINE 00:00:00 [facility] SARS-COV-2 COVID-19 2020-10-02 Completed Unive rsity of PFIZER VACCINE 00:00:00 [facility] SARS-COV-2 COVID-19 2020-10-02 Completed Unive rsity of PFIZER VACCINE 00:00:00 [facility] Meningococcal 2017-02-28 Completed University of Polysaccharide 00:00:00 [place] Medi katelyn (groups A, C, Y and Branc h W-135) conjugate vaccine (MCV4P) Influenza Virus 2017-02-28 Completed Universit y of Vaccine Quad IM 3+ 00:00:00 [facility] Meningococcal 2017-02-28 Completed University of Polysaccharide 00:00:00 [place] Medi katelyn (groups A, C, Y and Branc h W-135) conjugate vaccine (MCV4P) Influenza Virus 2017-02-28 Completed Universit y of Vaccine Quad IM 3+ 00:00:00 [facility] Meningococcal 2017-02-28 Completed University of Polysaccharide 00:00:00 [place] Medi katelyn (groups A, C, Y and Branc h W-135) conjugate vaccine (MCV4P) Influenza Virus 2017-02-28 Completed Universit y of Vaccine Quad IM 3+ 00:00:00 [facility] Meningococcal 2017-02-28 Completed University of Polysaccharide 00:00:00 [place] Medi katelyn (groups A, C, Y and Branc h W-135) conjugate vaccine (MCV4P) Influenza Virus 2017-02-28 Completed Universit y of Vaccine Quad IM 3+ 00:00:00 [facility] Meningococcal 2017-02-28 Completed University of Polysaccharide 00:00:00 [place] Medi katelyn (groups A, C, Y and Branc h W-135) conjugate vaccine (MCV4P) Influenza Virus 2017-02-28 Completed Universit y of Vaccine Quad IM 3+ 00:00:00 [facility] Meningococcal 2017-02-28 Completed University of Polysaccharide 00:00:00 [place] Medi katelyn (groups A, C, Y and Branc h W-135) conjugate vaccine (MCV4P) Influenza Virus 2017-02-28 Completed Universit y of Vaccine Quad IM 3+ 00:00:00 [facility] Meningococcal 2017-02-28 Completed University of Polysaccharide 00:00:00 [place] Medi katelyn (groups A, C, Y and Branc h W-135) conjugate vaccine (MCV4P) Influenza Virus 2017-02-28 Completed Universit y of Vaccine Quad IM 3+ 00:00:00 [facility] Meningococcal 2017-02-28 Completed University of Polysaccharide 00:00:00 [place] Medi katelyn (groups A, C, Y and Branc h W-135) conjugate vaccine (MCV4P) Influenza Virus 2017-02-28 Completed Universit y of Vaccine Quad IM 3+ 00:00:00 [facility] Influenza Virus 2016-03-01 Completed Universit y of Vaccine Quad IM 3+ 00:00:00 [facility] Influenza Virus 2016-03-01 Completed Universit y of Vaccine Quad IM 3+ 00:00:00 [facility] Influenza Virus 2016-03-01 Completed Universit y of Vaccine Quad IM 3+ 00:00:00 [facility] Influenza Virus 2016-03-01 Completed Universit y of Vaccine Quad IM 3+ 00:00:00 [facility] Influenza Virus 2016-03-01 Completed Universit y of Vaccine Quad IM 3+ 00:00:00 [facility] Influenza Virus 2016-03-01 Completed Universit y of Vaccine Quad IM 3+ 00:00:00 [facility] Influenza Virus 2016-03-01 Completed Universit y of Vaccine Quad IM 3+ 00:00:00 [facility] Influenza Virus 2016-03-01 Completed Universit y of Vaccine Quad IM 3+ 00:00:00 [facility] Influenza Virus 2015-03-12 Completed Universit y of Vaccine Quad IM 3+ 00:00:00 [facility] Influenza Virus 2015-03-12 Completed Universit y of Vaccine Quad IM 3+ 00:00:00 [facility] Influenza Virus 2015-03-12 Completed Universit y of Vaccine Quad IM 3+ 00:00:00 [facility] Influenza Virus 2015-03-12 Completed Universit y of Vaccine Quad IM 3+ 00:00:00 [facility] Influenza Virus 2015-03-12 Completed Universit y of Vaccine Quad IM 3+ 00:00:00 [facility] Influenza Virus 2015-03-12 Completed Universit y of Vaccine Quad IM 3+ 00:00:00 [facility] Influenza Virus 2015-03-12 Completed Universit y of Vaccine Quad IM 3+ 00:00:00 [facility] Influenza Virus 2015-03-12 Completed Universit y of Vaccine Quad IM 3+ 00:00:00 [facility] Influenza Virus 2014-05-20 Completed Universit y of Vaccine Quad IM 3+ 00:00:00 [facility] Influenza Virus 2014-05-20 Completed Universit y of Vaccine Quad IM 3+ 00:00:00 [facility] Influenza Virus 2014-05-20 Completed Universit y of Vaccine Quad IM 3+ 00:00:00 [facility] Influenza Virus 2014-05-20 Completed Universit y of Vaccine Quad IM 3+ 00:00:00 [facility] Influenza Virus 2014-05-20 Completed Universit y of Vaccine Quad IM 3+ 00:00:00 [facility] Influenza Virus 2014-05-20 Completed Universit y of Vaccine Quad IM 3+ 00:00:00 [facility] Influenza Virus 2014-05-20 Completed Universit y of Vaccine Quad IM 3+ 00:00:00 [facility] Influenza Virus 2014-05-20 Completed Universit y of Vaccine Quad IM 3+ 00:00:00 [facility] Influenza Virus 2013-05-22 Completed Universit y of Vaccine (3+ yrs) 00:00:00 [facility] Influenza Virus 2013-05-22 Completed Universit y of Vaccine (3+ yrs) 00:00:00 [facility] Influenza Virus 2013-05-22 Completed Universit y of Vaccine (3+ yrs) 00:00:00 [facility] Influenza Virus 2013-05-22 Completed Universit y of Vaccine (3+ yrs) 00:00:00 [facility] Influenza Virus 2013-05-22 Completed Universit y of Vaccine (3+ yrs) 00:00:00 [facility] Influenza Virus 2013-05-22 Completed Universit y of Vaccine (3+ yrs) 00:00:00 [facility] Influenza Virus 2013-05-22 Completed Universit y of Vaccine (3+ yrs) 00:00:00 [facility] Influenza Virus 2013-05-22 Completed Universit y of Vaccine (3+ yrs) 00:00:00 [facility] Influenza Virus 2012-03-25 Completed Universit y of Vaccine 00:00:00 [facility] [place] [facility] Meningococcal Vaccine 2012-03-25 Completed Uni versity of 00:00:00 [facility] [place] [facility] TDAP 2012-03-25 Completed University of 00:00:00 [facility] [place] [facility] Influenza Virus 2012-03-25 Completed Universit y of Vaccine 00:00:00 [facility] [place] [facility] Meningococcal Vaccine 2012-03-25 Completed Uni versity of 00:00:00 [facility] [place] [facility] TDAP 2012-03-25 Completed University of 00:00:00 [facility] [place] [facility] Influenza Virus 2012-03-25 Completed Universit y of Vaccine 00:00:00 [facility] [place] [facility] Meningococcal Vaccine 2012-03-25 Completed Uni versity of 00:00:00 [facility] [place] [facility] TDAP 2012-03-25 Completed University of 00:00:00 [facility] [place] [facility] Influenza Virus 2012-03-25 Completed Universit y of Vaccine 00:00:00 [facility] [place] [facility] Meningococcal Vaccine 2012-03-25 Completed Uni versity of 00:00:00 [facility] [place] [facility] TDAP 2012-03-25 Completed University of 00:00:00 [facility] [place] [facility] Influenza Virus 2012-03-25 Completed Universit y of Vaccine 00:00:00 [facility] [place] [facility] Meningococcal Vaccine 2012-03-25 Completed Uni versity of 00:00:00 [facility] [place] [facility] TDAP 2012-03-25 Completed University of 00:00:00 [facility] [place] [facility] Influenza Virus 2012-03-25 Completed Universit y of Vaccine 00:00:00 [facility] [place] [facility] Meningococcal Vaccine 2012-03-25 Completed Uni versity of 00:00:00 [facility] [place] [facility] TDAP 2012-03-25 Completed University of 00:00:00 [facility] [place] [facility] Influenza Virus 2012-03-25 Completed Universit y of Vaccine 00:00:00 [facility] [place] [facility] Meningococcal Vaccine 2012-03-25 Completed Uni versity of 00:00:00 [facility] [place] [facility] TDAP 2012-03-25 Completed University of 00:00:00 [facility] [place] [facility] Influenza Virus 2012-03-25 Completed Universit y of Vaccine 00:00:00 [facility] [place] [facility] Meningococcal Vaccine 2012-03-25 Completed Uni versity of 00:00:00 [facility] [place] [facility] TDAP 2012-03-25 Completed University of 00:00:00 [facility] [place] [facility] HPV 2011-04-17 Completed University of 00:00:00 [facility] [place] [facility] Influenza Virus 2011-04-17 Completed Universit y of Vaccine 00:00:00 [facility] [place] [facility] HPV 2011-04-17 Completed University of 00:00:00 [facility] [place] [facility] Influenza Virus 2011-04-17 Completed Universit y of Vaccine 00:00:00 [facility] [place] [facility] HPV 2011-04-17 Completed University of 00:00:00 [facility] [place] [facility] Influenza Virus 2011-04-17 Completed Universit y of Vaccine 00:00:00 [facility] [place] [facility] HPV 2011-04-17 Completed University of 00:00:00 [facility] [place] [facility] Influenza Virus 2011-04-17 Completed Universit y of Vaccine 00:00:00 [facility] [place] [facility] HPV 2011-04-17 Completed University of 00:00:00 [facility] [place] [facility] Influenza Virus 2011-04-17 Completed Universit y of Vaccine 00:00:00 [facility] [place] [facility] HPV 2011-04-17 Completed University of 00:00:00 [facility] [place] [facility] Influenza Virus 2011-04-17 Completed Universit y of Vaccine 00:00:00 [facility] [place] [facility] HPV 2011-04-17 Completed University of 00:00:00 [facility] [place] [facility] Influenza Virus 2011-04-17 Completed Universit y of Vaccine 00:00:00 [facility] [place] [facility] HPV 2011-04-17 Completed University of 00:00:00 [facility] [place] [facility] Influenza Virus 2011-04-17 Completed Universit y of Vaccine 00:00:00 [facility] [place] [facility] Influenza Virus 2010-03-01 Completed Universit y of Vaccine 00:00:00 [facility] [place] [facility] Influenza Virus 2010-03-01 Completed Universit y of Vaccine 00:00:00 [facility] [place] [facility] Influenza Virus 2010-03-01 Completed Universit y of Vaccine 00:00:00 [facility] [place] [facility] Influenza Virus 2010-03-01 Completed Universit y of Vaccine 00:00:00 [facility] [place] [facility] Influenza Virus 2010-03-01 Completed Universit y of Vaccine 00:00:00 [facility] [place] [facility] Influenza Virus 2010-03-01 Completed Universit y of Vaccine 00:00:00 [facility] [place] [facility] Influenza Virus 2010-03-01 Completed Universit y of Vaccine 00:00:00 [facility] [place] [facility] Influenza Virus 2010-03-01 Completed Universit y of Vaccine 00:00:00 [facility] [place] [facility] H1n1 Vaccine 2009-07-29 Completed University o f 00:00:00 [facility] [place] [facility] H1n1 Vaccine 2009-07-29 Completed University o f 00:00:00 [facility] [place] [facility] H1n1 Vaccine 2009-07-29 Completed University o f 00:00:00 [facility] [place] [facility] H1n1 Vaccine 2009-07-29 Completed University o f 00:00:00 [facility] [place] [facility] H1n1 Vaccine 2009-07-29 Completed University o f 00:00:00 [facility] [place] [facility] H1n1 Vaccine 2009-07-29 Completed University o f 00:00:00 [facility] [place] [facility] H1n1 Vaccine 2009-07-29 Completed University o f 00:00:00 [facility] [place] [facility] H1n1 Vaccine 2009-07-29 Completed University o f 00:00:00 [facility] [place] [facility] H1n1 Vaccine 2009-06-28 Completed University o f 00:00:00 [facility] [place] [facility] H1n1 Vaccine 2009-06-28 Completed University o f 00:00:00 [facility] [place] [facility] H1n1 Vaccine 2009-06-28 Completed University o f 00:00:00 [facility] [place] [facility] H1n1 Vaccine 2009-06-28 Completed University o f 00:00:00 [facility] [place] [facility] H1n1 Vaccine 2009-06-28 Completed University o f 00:00:00 [facility] [place] [facility] H1n1 Vaccine 2009-06-28 Completed University o f 00:00:00 [facility] [place] [facility] H1n1 Vaccine 2009-06-28 Completed University o f 00:00:00 [facility] [place] [facility] H1n1 Vaccine 2009-06-28 Completed University o f 00:00:00 [facility] [place] [facility] Influenza Virus 2009-02-22 Completed Universit y of Vaccine Nasal 00:00:00 [facility] Influenza Virus 2009-02-22 Completed Universit y of Vaccine Nasal 00:00:00 [facility] Influenza Virus 2009-02-22 Completed Universit y of Vaccine Nasal 00:00:00 [facility] Influenza Virus 2009-02-22 Completed Universit y of Vaccine Nasal 00:00:00 [facility] Influenza Virus 2009-02-22 Completed Universit y of Vaccine Nasal 00:00:00 [facility] Influenza Virus 2009-02-22 Completed Universit y of Vaccine Nasal 00:00:00 [facility] Influenza Virus 2009-02-22 Completed Universit y of Vaccine Nasal 00:00:00 [facility] Influenza Virus 2009-02-22 Completed Universit y of Vaccine Nasal 00:00:00 [facility] PPD (TB) 2008-04-14 Completed University of 00:00:00 [facility] [place] [facility] PPD (TB) 2008-04-14 Completed University of 00:00:00 [facility] [place] [facility] PPD (TB) 2008-04-14 Completed University of 00:00:00 [facility] [place] [facility] PPD (TB) 2008-04-14 Completed University of 00:00:00 [facility] [place] [facility] PPD (TB) 2008-04-14 Completed University of 00:00:00 [facility] [place] [facility] PPD (TB) 2008-04-14 Completed University of 00:00:00 [facility] [place] [facility] PPD (TB) 2008-04-14 Completed University of 00:00:00 [facility] [place] [facility] PPD (TB) 2008-04-14 Completed University of 00:00:00 [facility] [place] [facility] Influenza Virus 2008-04-09 Completed Universit y of Vaccine Nasal 00:00:00 [facility] Influenza Virus 2008-04-09 Completed Universit y of Vaccine Nasal 00:00:00 [facility] Influenza Virus 2008-04-09 Completed Universit y of Vaccine Nasal 00:00:00 [facility] Influenza Virus 2008-04-09 Completed Universit y of Vaccine Nasal 00:00:00 [facility] Influenza Virus 2008-04-09 Completed Universit y of Vaccine Nasal 00:00:00 [facility] Influenza Virus 2008-04-09 Completed Universit y of Vaccine Nasal 00:00:00 [facility] Influenza Virus 2008-04-09 Completed Universit y of Vaccine Nasal 00:00:00 [facility] Influenza Virus 2008-04-09 Completed Universit y of Vaccine Nasal 00:00:00 [facility] HEPATITIS A 2006-03-29 Completed University of 00:00:00 [facility] [place] [facility] Influenza Virus 2006-03-29 Completed Universit y of Vaccine 00:00:00 [facility] [place] [facility] Varicella 2006-03-29 Completed University of (varivax)(chicken 00:00:00 [place] M edical pox) Branch HEPATITIS A 2006-03-29 Completed University of 00:00:00 [facility] [place] [facility] Influenza Virus 2006-03-29 Completed Universit y of Vaccine 00:00:00 [facility] [place] [facility] Varicella 2006-03-29 Completed University of (varivax)(chicken 00:00:00 [place] M edical pox) Branch HEPATITIS A 2006-03-29 Completed University of 00:00:00 [facility] [place] [facility] Influenza Virus 2006-03-29 Completed Universit y of Vaccine 00:00:00 [facility] Varicella 2006-03-29 Completed University of (varivax)(chicken 00:00:00 [place] [facility] pox) [facility] HEPATITIS A 2006-03-29 Completed University of 00:00:00 [facility] Influenza Virus 2006-03-29 Completed Universit y of Vaccine 00:00:00 [facility] Varicella 2006-03-29 Completed University of (varivax)(chicken 00:00:00 [facility] edical pox) Branch HEPATITIS A 2006-03-29 Completed University of 00:00:00 [facility] Influenza Virus 2006-03-29 Completed Universit y of Vaccine 00:00:00 [facility] Varicella 2006-03-29 Completed University of (varivax)(chicken 00:00:00 [facility] edical pox) Branch HEPATITIS A 2006-03-29 Completed University of 00:00:00 [facility] Influenza Virus 2006-03-29 Completed Universit y of Vaccine 00:00:00 [facility] Varicella 2006-03-29 Completed University of (varivax)(chicken 00:00:00 [facility] edical pox) Branch HEPATITIS A 2006-03-29 Completed University of 00:00:00 [facility] Influenza Virus 2006-03-29 Completed Universit y of Vaccine 00:00:00 [facility] Varicella 2006-03-29 Completed University of (varivax)(chicken 00:00:00 [facility] edical pox) Branch HEPATITIS A 2006-03-29 Completed University of 00:00:00 [facility] Influenza Virus 2006-03-29 Completed Universit y of Vaccine 00:00:00 [facility] Varicella 2006-03-29 Completed University of (varivax)(chicken 00:00:00 [facility] edical pox) Branch MMR 2006-01-11 Completed University of 00:00:00 [facility] MMR 2006-01-11 Completed University of 00:00:00 [facility] MMR 2006-01-11 Completed University of 00:00:00 [facility] MMR 2006-01-11 Completed University of 00:00:00 [facility] MMR 2006-01-11 Completed University of 00:00:00 [facility] MMR 2006-01-11 Completed University of 00:00:00 [facility] MMR 2006-01-11 Completed University of 00:00:00 [facility] MMR 2006-01-11 Completed University of 00:00:00 [facility] DTAP 2005-06-12 Completed University of 00:00:00 [facility] HEPATITIS A 2005-06-12 Completed University of 00:00:00 [facility] Hep B, Adol or Pedi 2005-06-12 Completed Unive rsity of Dosage 00:00:00 [facility] MMR 2005-06-12 Completed University of 00:00:00 [facility] Pneumococcal 7 2005-06-12 Completed University of Conjugate, PCV7 00:00:00 [place] [facility] (Prevnar7) Branch Polio (IPV/OPV) 2005-06-12 Completed Universit y of 00:00:00 [facility] Varicella 2005-06-12 Completed University of (varivax)(chicken 00:00:00 [facility] [place] [facility] pox) [facility] DTAP 2005-06-12 Completed University of 00:00:00 [facility] HEPATITIS A 2005-06-12 Completed University of 00:00:00 [facility] Hep B, Adol or Pedi 2005-06-12 Completed Unive rsity of Dosage 00:00:00 [facility] MMR 2005-06-12 Completed University of 00:00:00 [facility] Pneumococcal 7 2005-06-12 Completed University of Conjugate, PCV7 00:00:00 [facility] ical (Prevnar7) Branch Polio (IPV/OPV) 2005-06-12 Completed Universit y of 00:00:00 [facility] Varicella 2005-06-12 Completed [facility] of (varivax)(chicken 00:00:00 [place] [facility] pox) [facility] DTAP 2005-06-12 Completed University of 00:00:00 [facility] HEPATITIS A 2005-06-12 Completed University of 00:00:00 [facility] Hep B, Adol or Pedi 2005-06-12 Completed Unive rsity of Dosage 00:00:00 [facility] MMR 2005-06-12 Completed University of 00:00:00 [facility] Pneumococcal 7 2005-06-12 Completed University of Conjugate, PCV7 00:00:00 [facility] ical (Prevnar7) Branch Polio (IPV/OPV) 2005-06-12 Completed Universit y of 00:00:00 [facility] Varicella 2005-06-12 Completed University of (varivax)(chicken 00:00:00 [place] [facility] pox) [facility] DTAP 2005-06-12 Completed University of 00:00:00 [facility] HEPATITIS A 2005-06-12 Completed University of 00:00:00 [facility] Hep B, Adol or Pedi 2005-06-12 Completed Unive rsity of Dosage 00:00:00 [facility] MMR 2005-06-12 Completed University of 00:00:00 [facility] Pneumococcal 7 2005-06-12 Completed University of Conjugate, PCV7 00:00:00 [place] [facility] (Prevnar7) [facility] Polio (IPV/OPV) 2005-06-12 Completed Universit y of 00:00:00 [facility] Varicella 2005-06-12 Completed University of (varivax)(chicken 00:00:00 [place] [facility] pox) [facility] DTAP 2005-06-12 Completed University of 00:00:00 [facility] HEPATITIS A 2005-06-12 Completed University of 00:00:00 [facility] Hep B, Adol or Pedi 2005-06-12 Completed Unive rsity of Dosage 00:00:00 [facility] MMR 2005-06-12 Completed University of 00:00:00 [facility] Pneumococcal 7 2005-06-12 Completed University of Conjugate, PCV7 00:00:00 [place] [facility] (Prevnar7) [facility] Polio (IPV/OPV) 2005-06-12 Completed Universit y of 00:00:00 [facility] Varicella 2005-06-12 Completed University of (varivax)(chicken 00:00:00 [place] [facility] pox) [facility] DTAP 2005-06-12 Completed University of 00:00:00 [facility] HEPATITIS A 2005-06-12 Completed University of 00:00:00 [facility] Hep B, Adol or Pedi 2005-06-12 Completed Unive rsity of Dosage 00:00:00 [facility] MMR 2005-06-12 Completed University of 00:00:00 [facility] Pneumococcal 7 2005-06-12 Completed University of Conjugate, PCV7 00:00:00 [place] [facility] (Prevnar7) Branch Polio (IPV/OPV) 2005-06-12 Completed Universit y of 00:00:00 [facility] Varicella 2005-06-12 Completed University of (varivax)(chicken 00:00:00 [place] [facility] pox) [facility] DTAP 2005-06-12 Completed University of 00:00:00 [facility] HEPATITIS A 2005-06-12 Completed University of 00:00:00 [facility] Hep B, Adol or Pedi 2005-06-12 Completed Unive rsity of Dosage 00:00:00 [facility] MMR 2005-06-12 Completed University of 00:00:00 [facility] Pneumococcal 7 2005-06-12 Completed University of Conjugate, PCV7 00:00:00 [place] [facility] (Prevnar7) Branch Polio (IPV/OPV) 2005-06-12 Completed Universit y of 00:00:00 [facility] Varicella 2005-06-12 Completed University of (varivax)(chicken 00:00:00 [place] [facility] pox) [facility] DTAP 2005-06-12 Completed University of 00:00:00 [facility] HEPATITIS A 2005-06-12 Completed University of 00:00:00 [facility] Hep B, Adol or Pedi 2005-06-12 Completed Unive rsity of Dosage 00:00:00 [facility] MMR 2005-06-12 Completed University of 00:00:00 [facility] Pneumococcal 7 2005-06-12 Completed University of Conjugate, PCV7 00:00:00 [place] [facility] (Prevnar7) [facility] Polio (IPV/OPV) 2005-06-12 Completed Universit y of 00:00:00 [facility] Varicella 2005-06-12 Completed University of (varivax)(chicken 00:00:00 [place] [facility] pox) [facility] DTAP 2005-03-06 Completed University of 00:00:00 [facility] DTAP 2005-03-06 Completed University of 00:00:00 [facility] DTAP 2005-03-06 Completed University of 00:00:00 [facility] DTAP 2005-03-06 Completed University of 00:00:00 [facility] DTAP 2005-03-06 Completed University of 00:00:00 [facility] DTAP 2005-03-06 Completed University of 00:00:00 [facility] DTAP 2005-03-06 Completed University of 00:00:00 [facility] DTAP 2005-03-06 Completed University of 00:00:00 [facility] Polio (IPV/OPV) 2004-07-23 Completed Universit y of 00:00:00 [facility] Polio (IPV/OPV) 2004-07-23 Completed Universit y of 00:00:00 [facility] Polio (IPV/OPV) 2004-07-23 Completed Universit y of [...] of 00:00:00 [facility] Polio (IPV/OPV) 2003-10-02 Completed Universit y of 00:00:00 [facility] Polio (IPV/OPV) 2003-10-02 Completed Universit y of 00:00:00 [facility] Polio (IPV/OPV) 2003-10-02 Completed Universit y of 00:00:00 [facility] Polio (IPV/OPV) 2003-10-02 Completed Universit y of 00:00:00 [facility] Polio (IPV/OPV) 2003-10-02 Completed Universit y of 00:00:00 [facility] Polio (IPV/OPV) 2003-10-02 Completed Universit y of 00:00:00 [facility] Polio (IPV/OPV) 2003-10-02 Completed Universit y of 00:00:00 [facility] Polio (IPV/OPV) 2003-10-02 Completed Universit y of 00:00:00 [facility] Polio (IPV/OPV) 2003-07-25 Completed Universit y of 00:00:00 [facility] Polio (IPV/OPV) 2003-07-25 Completed Universit y of 00:00:00 [facility] Polio (IPV/OPV) 2003-07-25 Completed Universit y of 00:00:00 [facility] Polio (IPV/OPV) 2003-07-25 Completed Universit y of 00:00:00 [facility] Polio (IPV/OPV) 2003-07-25 Completed Universit y of 00:00:00 [facility] Polio (IPV/OPV) 2003-07-25 Completed Universit y of 00:00:00 [facility] Polio (IPV/OPV) 2003-07-25 Completed Universit y of 00:00:00 [facility] Polio (IPV/OPV) 2003-07-25 Completed Universit y of 00:00:00 [facility] DTAP 2003-03-30 [...] Branch DTAP 2003-03-30 Completed University of 00:00:00 [facility] Polio (IPV/OPV) 2002-11-08 Completed Universit y of 00:00:00 [facility] Polio (IPV/OPV) 2002-11-08 Completed Universit [...] (IPV/OPV) 2002-07-26 Completed Universit y of 00:00:00 [facility] MMR 2002-03-04 Completed University of 00:00:00 [facility] MMR 2002-03-04 Completed University of 00:00:00 [facility] MMR 2002-03-04 Completed University of 00:00:00 [facility] MMR 2002-03-04 Completed University of 00:00:00 [facility] MMR 2002-03-04 Completed University of 00:00:00 [facility] MMR 2002-03-04 Completed University of 00:00:00 [facility] MMR 2002-03-04 Completed University of 00:00:00 [facility] MMR 2002-03-04 Completed University of 00:00:00 [facility] Polio (IPV/OPV) 2001 Completed Universit y of 00:00:00 [facility] Polio (IPV/OPV) 2001 Completed Universit y of 00:00:00 [facility] Polio (IPV/OPV) 2001 Completed Universit y of 00:00:00 [facility] Polio (IPV/OPV) 2001 Completed Universit y of 00:00:00 [facility] Polio (IPV/OPV) 2001 Completed Universit y of 00:00:00 [facility] Polio (IPV/OPV) 2001 Completed Universit y of 00:00:00 [facility] Polio (IPV/OPV) 2001 Completed Universit y of 00:00:00 [facility] Polio (IPV/OPV) 2001 Completed Universit y of 00:00:00 [facility] DTAP 2001 Completed University of 00:00:00 [facility] Polio (IPV/OPV) 2001 Completed Universit y of 00:00:00 [facility] DTAP 2001 Completed University of 00:00:00 [facility] Polio (IPV/OPV) 2001 Completed Universit y of 00:00:00 [facility] DTAP 2001 Completed University of 00:00:00 [facility] Polio (IPV/OPV) 2001 Completed Universit y of 00:00:00 [facility] DTAP 2001 Completed University of 00:00:00 [facility] Polio (IPV/OPV) 2001 Completed Universit y of 00:00:00 [facility] DTAP 2001 Completed University of 00:00:00 [facility] Polio (IPV/OPV) 2001 Completed Universit y of 00:00:00 [facility] DTAP 2001 Completed University of 00:00:00 [facility] Polio (IPV/OPV) 2001 Completed Universit y of 00:00:00 [facility] DTAP 2001 Completed University of 00:00:00 [facility] Polio (IPV/OPV) 2001 Completed Universit y of 00:00:00 [facility] DTAP 2001 Completed University of 00:00:00 [facility] Polio (IPV/OPV) 2001 Completed Universit y of 00:00:00 [facility] DTAP 2001 Completed University of 00:00:00 [facility] HIB 4 Dose Schedule 2001 Completed Unive rsity of 00:00:00 [facility] Pneumococcal 7 2001 Completed University of Conjugate, PCV7 00:00:00 [place] [facility] (Prevnar7) Branch Polio (IPV/OPV) 2001 Completed Universit y of 00:00:00 [facility] DTAP 2001 Completed University of 00:00:00 [facility] HIB 4 Dose Schedule 2001 Completed Unive rsity of 00:00:00 [facility] Pneumococcal 7 2001 Completed University of Conjugate, PCV7 00:00:00 [place] [facility] (Prevnar7) Branch Polio (IPV/OPV) 2001 Completed Universit y of 00:00:00 [facility] DTAP 2001 Completed University of 00:00:00 [facility] HIB 4 Dose Schedule 2001 Completed Unive rsity of 00:00:00 [facility] Pneumococcal 7 2001 Completed University of Conjugate, PCV7 00:00:00 [place] [facility] (Prevnar7) Branch Polio (IPV/OPV) 2001 Completed Universit y of 00:00:00 [facility] DTAP 2001 Completed University of 00:00:00 [facility] HIB 4 Dose Schedule 2001 Completed Unive rsity of 00:00:00 [facility] Pneumococcal 7 2001 Completed University of Conjugate, PCV7 00:00:00 [place] [facility] (Prevnar7) Branch Polio (IPV/OPV) 2001 Completed Universit y of 00:00:00 [facility] DTAP 2001 Completed University of 00:00:00 [facility] HIB 4 Dose Schedule 2001 Completed Unive rsity of 00:00:00 [facility] Pneumococcal 7 2001 Completed University of Conjugate, PCV7 00:00:00 [place] [facility] (Prevnar7) Branch Polio (IPV/OPV) 2001 Completed Universit y of 00:00:00 [facility] DTAP 2001 Completed University of 00:00:00 [facility] HIB 4 Dose Schedule 2001 Completed Unive rsity of 00:00:00 [facility] Pneumococcal 7 2001 Completed University of Conjugate, PCV7 00:00:00 [place] [facility] (Prevnar7) Branch Polio (IPV/OPV) 2001 Completed Universit y of 00:00:00 [facility] DTAP 2001 Completed University of 00:00:00 [facility] HIB 4 Dose Schedule 2001 Completed Unive rsity of 00:00:00 [facility] Pneumococcal 7 2001 Completed University of Conjugate, PCV7 00:00:00 [place] [facility] (Prevnar7) Branch Polio (IPV/OPV) 2001 Completed Universit y of 00:00:00 [facility] DTAP 2001 Completed University of 00:00:00 [facility] HIB 4 Dose Schedule 2001 Completed Unive rsity of 00:00:00 [facility] Pneumococcal 7 2001 Completed University of Conjugate, PCV7 00:00:00 [facility] ical (Prevnar7) Branch Polio (IPV/OPV) 2001 Completed Universit y of 00:00:00 [facility] DTAP 2001 Completed University of 00:00:00 [facility] HIB 4 Dose Schedule 2001 Completed Unive rsity of 00:00:00 [facility] Polio (IPV/OPV) 2001 Completed Universit y of 00:00:00 [facility] DTAP 2001 Completed University of 00:00:00 [facility] HIB 4 Dose Schedule 2001 Completed Unive rsity of 00:00:00 [facility] Polio (IPV/OPV) 2001 Completed Universit y of 00:00:00 [facility] DTAP 2001 Completed University of 00:00:00 [facility] HIB 4 Dose Schedule 2001 Completed Unive rsity of 00:00:00 [facility] Polio (IPV/OPV) 2001 Completed Universit y of 00:00:00 [facility] DTAP 2001 Completed University of 00:00:00 [facility] HIB 4 Dose Schedule 2001 Completed Unive rsity of 00:00:00 [facility] Polio (IPV/OPV) 2001 Completed Universit y of 00:00:00 [facility] DTAP 2001 Completed University of 00:00:00 [facility] HIB 4 Dose Schedule 2001 Completed Unive rsity of 00:00:00 [facility] Polio (IPV/OPV) 2001 Completed Universit y of 00:00:00 [facility] DTAP 2001 Completed University of 00:00:00 [facility] HIB 4 Dose Schedule 2001 Completed Unive rsity of 00:00:00 [facility] Polio (IPV/OPV) 2001 Completed Universit y of 00:00:00 [facility] DTAP 2001 Completed University of 00:00:00 [facility] HIB 4 Dose Schedule 2001 Completed Unive rsity of 00:00:00 [facility] Polio (IPV/OPV) 2001 Completed Universit y of 00:00:00 [facility] DTAP 2001 Completed University of 00:00:00 [facility] HIB 4 Dose Schedule 2001 Completed Unive rsity of 00:00:00 [facility] Polio (IPV/OPV) 2001 Completed Universit y of 00:00:00 [facility] Hep B, Adol or Pedi 2001 Completed Unive rsity of Dosage 00:00:00 [facility] Hep B, Adol or Pedi 2001 Completed Unive rsity of Dosage 00:00:00 [facility] Hep B, Adol or Pedi 2001 Completed Unive rsity of Dosage 00:00:00 [facility] Hep B, Adol or Pedi 2001 Completed Unive rsity of Dosage 00:00:00 [facility] Hep B, Adol or Pedi 2001 Completed Unive rsity of Dosage 00:00:00 [facility] Hep B, Adol or Pedi 2001 Completed Unive rsity of Dosage 00:00:00 [facility] Hep B, Adol or Pedi 2001 Completed Unive rsity of Dosage 00:00:00 [facility] Hep B, Adol or Pedi 2001 Completed Unive rsity of Dosage 00:00:00 [facility] Hep B, Adol or Pedi 2001 Completed Unive rsity of Dosage 00:00:00 [facility] Hep B, Adol or Pedi 2001 Completed Unive rsity of Dosage 00:00:00 [facility] Hep B, Adol or Pedi 2001 Completed Unive rsity of Dosage 00:00:00 [facility] Hep B, Adol or Pedi 2001 Completed Unive rsity of Dosage 00:00:00 [facility] Hep B, Adol or Pedi 2001 Completed Unive rsity of Dosage 00:00:00 [facility] Hep B, Adol or Pedi 2001 Completed Unive rsity of Dosage 00:00:00 [facility] Hep B, Adol or Pedi 2001 Completed Unive rsity of Dosage 00:00:00 [facility] Hep B, Adol or Pedi 2001 Completed Unive rsity of Dosage 00:00:00 [facility] Vital Signs Vital Name Observation Time Observation Value Comments Source Body height 2022-06-13 22:20:00 170.2 cm Universi ty of [facility] Systolic blood 2022-02-23 20:35:00 117 mm[Hg] Univer sity of pressure [facility] Diastolic blood 2022-02-23 20:35:00 83 mm[Hg] Unive rsity of pressure [facility] Heart rate 2022-02-23 20:35:00 85 /min Universi ty of [facility] Body temperature 2022-02-23 20:33:00 36.61 Joanne Univ ersity of [facility] Respiratory rate 2022-02-23 20:33:00 16 /min Univ ersity of [facility] Body height 2022-02-23 20:33:00 162.6 cm [facility]i ty of [facility] Body weight 2022-02-23 20:33:00 43.182 kg Universi ty of [facility] BMI 2022-02-23 20:33:00 16.34 kg/m2 Universi ty of [facility] Oxygen saturation in 2022-02-23 20:33:00 97 /min University Arterial blood by [facility] oximetry Branch Systolic blood 2022-01-02 20:25:00 122 mm[Hg] Univer sity of pressure [facility] Diastolic blood 2022-01-02 20:25:00 87 mm[Hg] Unive rsity of pressure [facility] Heart rate 2022-01-02 20:25:00 86 /min Universi ty of [facility] Body temperature 2022-01-02 20:23:00 37.06 Joanne Univ ersity of [facility] Respiratory rate 2022-01-02 20:23:00 16 /min Univ ersity of [facility] Body height 2022-01-02 20:23:00 162.6 cm Universi ty of [facility] Body weight 2022-01-02 20:23:00 43.999 kg Universi ty of [facility] BMI 2022-01-02 20:23:00 16.65 kg/m2 Universi ty of [facility] Oxygen saturation in 2022-01-02 20:23:00 97 /min University of Arterial blood by [facility] oxim[facility] Procedures This patient has no known procedures. Encounters Start End Encounter Admission Attending Care Care Encounter Source Date/Time Date/Time Type Type Clinicians Facility Department ID 2022-08-22 2022-08-22 Outpatient R HIRA [facility] [id number] Univers 16:30:00 16:30:00 JANIS adler [facility] 2022-06-13 2022-06-13 Office Candelario Celestin [facility] [id number] Univers 16:15:00 16:30:00 Visit Phyllis Diaz [id number] ity of [place] [id number] [id number] [address] [facility] 2022-06-13 2022-06-13 Outpatient R PHYLLIS DIAZ [facility] [id number] Univers 16:15:00 16:15:00 PHYLLIS DIAZ [facility] 2022-02-23 2022-02-23 Outpatient R HIRA [facility] [id number] Univers 15:30:00 15:59:25 JANIS adler [facility] 2022-02-23 2022-02-23 [facility] [id number] Univers 15:30:00 15:59:25 Visit Janis MCCONNELL [id number] ity of [place] [id number] [facility] [id number] [address] [facility] 2022-02-23 2022-02-23 [facility] [id number] Univers 15:30:00 15:30:00 JANIS adler [facility] 2022-02-13 2022-02-13 Certified Social Workers In Health Care Pam, Bridgette Lab Main [facility] [id number] Univers 08:30:00 08:45:00 Visit Janis Iniguez [id number] [place] of [place] [id number] [place] [id number] Sc dical [facility]AL [address] [place] [address] 2022-02-13 2022-02-13 Outpatient R [facility] [id number] Univers 08:30:00 08:30:00 JNAIS ity [facility] 2022-01-20 2022-01-20 [facility]phone [facility] 1.2.840.114 [id number] Univers 00:00:00 00:00:00 Janis OVERTONPEC 350.1.13.10 [id number] [phone] [facility] AND [address] [facility] 2022-01-09 2022-01-09 Certified Social Workers In Health Care Pam, Bridgette Lab Main [facility] 1.2.8 40.114 [id number] Univers 09:30:00 09:45:00 Visit Janis Iniguez 350.1.13.10 it[place] [phone] Sc dical [address] 2022-01-09 2022-01-09 Outpatient R [facility] [id number] Univers 09:30:00 09:30:00 JANIS ity [facility] 2022-01-09 2022-01-09 Outpatient R [facility] [id number] Univers 09:30:00 09:30:00 JANIS ity [facility] 2022-01-02 2022-01-02 Certified Social Workers In Health Care Vtc-Lab [facility] 1.2.840.114 [id number] Univers 16:30:00 16:45:00 Visit Janis Iniguez 350.1.13.1 0 [place] [phone] [facility] AND [place] [address] [facility] 2022-01-02 2022-01-02 Office [facility] [id number] Univers 15:30:00 15:55:54 Visit Janis MCCONNELL 350.1.13.10 [place] [phone] [facility] AND [place] [address] [facility] 2022-01-02 2022-01-02 Outpatient R HIRA [facility] [id number] Univers 15:30:00 15:55:54 JANIS adler [facility] 2021-12-26 2021-12-26 Telephone Hira [facility] 1.2.840.114 [id number] Univers 00:00:00 00:00:00 Janis MULTISPEC 350.1.13.10 ity of [place] 4.2.7.2.686 [facility] [id number] [facility] AND [place] [address] [facility] 2021-10-19 2021-10-19 [facility]phone [facility] 1.2.840.114 [id number] Univers 00:00:00 00:00:00 Beny Raquel HEALTH 350.1.13.10 ity of [place] 4.2.7.2.686 [facility] [id number] [facility] PRIMARY & [address] SPECIALTY CARE 2021-10-19 2021-10-19 [facility]phone [facility] 1.2.840.114 [id number] Univers 00:00:00 00:00:00 Beny Raquel HEALTH 350.1.13.10 ity of [place] 4.2.7.2.686 [facility] [phone] [facility] PRIMARY & [address] SPECIALTY CARE 2021-10-18 2021-10-18 Outpatient R KAREN [facility] [id number] Univers 12:46:09 23:59:00 BENY taylornacho [facility] 2021-10-18 2021-10-18 [facility] [id number] Univers 12:46:09 23:59:00 Encounter Beny Raquel SPECIALTY 350.1.13.10 ity of CARE 4.2.7.2.686 [facility] AT [phone] Sc fosterleeanne TOPETE [facility] 2021-10-18 2021-10-18 Outpatient R KAREN [facility] [id number] Univers 00:00:00 00:00:00 BENY adler [facility] 2021-10-13 2021-10-13 Office [facility] 1.2.840.114 [id number] Univers 10:30:00 10:53:10 Visit Beny [facility] [id number] ity of [place]7.2.[place] [facility] AT [phone] [address] 2021-10-13 2021-10-13 Outpatient Lenora JONES [facility] [id number] Univers 10:30:00 10:53:10 [facility] 2021-10-13 2021-10-13 Outpatient Lenora JONES [facility] [id number] Univers 10:30:00 10:30:00 [facility] 2021-10-13 2021-10-13 Orders Doctor CARLITO 1.2.840.114 [id number] Univers 00:00:00 00:00:00 Only Unassigned, ALFREDA 350.1.13.10 ity of [place] [facility] 4.2.7.2.686 Marc as [phone] [address] 2021-10-03 2021-10-03 Outpatient Lenora JONES [facility] [id number] Univers 15:00:00 15:00:00 [facility] 2021-09-23 2021-09-23 Outpatient AUSTIN_VIANEY HUERTA [facility] [id number] 03:57:00 03:57:00 _ANN 0422 [facility] 2021-09-07 2021-09-07 Orders Doctor CARLITO Weaver.2.840.114 [id number] Univers 00:00:00 00:00:00 Only Unassigned, ALFREDA 350.1.13.10 ity of [place] [facility] 4.2.7.2.686 Marc as [phone] [address] 2020-10-25 2020-10-25 Outpatient Lenroa HOPE [facility] [id number] Univers 09:40:00 09:40:00 [facility] 2020-10-02 2020-10-02 Outpatient Lenora HOPE [facility] [id number] Univers 09:40:00 09:40:00 [facility] 2020-01-05 2020-01-05 Outpatient Lenora MENDEZ [facility] [id number] Univers 10:00:00 10:00:00 TAO vitor o f [facility] 2019-09-28 2019-09-28 [facility]114 [id number] 00:00:00 00:00:00 Amber Orlando 350.1.13.10 Pediatric 4.2.7.2.686 Clinic [phone] [facility] 2019-09-28 2019-09-[address] [facility] ([place], [place]) 1.2.840.114 [id number] [facility] 00:00:00 00:00:00 Amber [place] 350.1.13.10 ity [place]2.[place] [facility] [id number] [address] 2019-09-19 2019-09-19 [facility] 1.2.840.114 [id number] [facility] 00:00:00 00:00:00 Arely Becker 350.1.13.10 ity of [place]7.2.686 [place] [facility] [phone] [address] 2019-08-04 2019-08-04 Office [facility] 1.2.840.114 [id number] [facility] 08:15:44 08:30:35 Visit Arely Becker 350.1.13.10 ity of [place]2.[place] [facility] [facility] [phone] [address] 2019-08-04 2019-08-04 Outpatient [facility] [id number] Univers 08:20:00 08:20:00 ARELY adler of [facility] 2019-07-07 2019-07-07 Office [facility] 1.2.840.114 [id number] Univers 13:13:58 13:59:59 Visit Lindsey MCCONNELL 350.1.13.10 ity of [place] 4.2.7.2.686 [facility] [phone] [address] DI[facility] 2019-07-07 2019-07-07 Orders Doctor ESTEBAN 1.2.840.114 [id number] Univers 00:00:00 00:00:00 Only Unassigned, ALFREDA 350.1.13.10 [place]y of [place] [facility] 4.2.7.2.686 Marc as [phone] [facility] [address] Results This patient has no known results.
[2022-07-17] MEDS ORDERED: LIDOCAINE 1% MPF 5 ML VIAL ONE (23:08)
--- NOTE | 2022-07-17 23:41 | ER ---
Nurse's Notes [facility] Name: Sapna De Anda Age: 22 yrs Sex: Female : 2000 Arrival Date: 07/17/2022 Time: 20:55 Bed 11 Private MD: Diagnosis: Superficial foreign body of right ear, initial encounter-earring embedded in earlobe Presentation: 07/17 21:57 Note pt not in lobby. kl 22:09 Chief complaint: Patient states: EARRING STUCK IN RIGHT EAR LOBE SINCE 4PM. Coronavirus kl screen: Vaccine status: Patient reports receiving the 1st dose of the Covid vaccine. Ebola Screen: Patient negative for fever greater than or equal to 101.5 degrees Fahrenheit, and additional compatible Ebola Virus Disease symptoms. Initial Sepsis Screen: Does the patient meet any 2 criteria? No. Patient's initial sepsis screen is negative. Does the patient have a suspected source of infection? No. Patient's initial sepsis screen is negative. Risk Assessment: Do you want to hurt yourself or someone else? Patient reports no desire to harm self or others. 22:09 Method Of Arrival: Ambulatory kl 22:09 Acuity: ADALBERTO 4 kl Triage Assessment: 22:11 General: Appears in no apparent distress. comfortable, Behavior is calm, cooperative. kl Pain: Complains of pain in right ear Pain currently is 5 out of 10 on a pain scale. Historical: - Allergies: 22:11 Amoxicillin; kl - PMHx: 22:11 Anemia; kl - PSHx: 22:11 None; kl - Immunization history:: Adult Immunizations not up to date. - Social history:: Smoking status: Patient denies any tobacco usage or history of. Screenin:54 [facility] ED Fall Risk Assessment (Adult) History of falling in the last 3 months, mb9 including since admission No falls in past 3 months (0 pts) Confusion or Disorientation No (0 pts) Intoxicated or Sedated No (0 pts) Impaired Gait No (0 pts) Mobility Assist Device Used No (0 pt) Altered Elimination No (0 pt) Score/Fall Risk Level 0 - 2 = Low Risk Oriented to surroundings, Maintained a safe environment, Educated pt \T\ family on fall prevention, incl call for assistance when getting out of bed. Abuse screen: Denies threats or abuse. Nutritional screening: No deficits noted. Tuberculosis screening: No symptoms or risk factors identified. Assessment: 22:43 Reassessment: pt brought back to ER room. mb9 23:00 General: Appears in no apparent distress. comfortable, Behavior is calm, cooperative, mb9 appropriate for age. Pain: Denies pain. Neuro: Level of Consciousness is awake, alert, obeys commands, Oriented to person, place, time, situation, Appropriate for age. Cardiovascular: Capillary refill < 3 seconds is brisk Patient's skin is warm and dry. Respiratory: Airway is patent Respiratory effort is even, unlabored, Respiratory pattern is regular, symmetrical. EENT: Reports earring stuck in right ear. Derm: Skin is pink, warm \T\ dry. Musculoskeletal: Range of motion: intact in all extremities. Vital Signs: 22:09 BP 120 / 95; Pulse 75; Resp 16; Temp 98.1(TE); Pulse Ox 100% on R/A; Weight 44.45 kg (R); Height 5 ft. 4 in. (162.56 cm); Pain 5/10; 23:35 BP 118 / 94; Pulse 68; Resp 17; Pulse Ox 99% on R/A; mb9 22:09 Body Mass Index 16.82 (44.45 kg, 162.56 cm) ED Course: 20:55 Patient arrived in ED. ag3 20:55 Arm band placed on. mb9 21:06 Kris Maldonado PA is PHCP. cp 21:06 Kris John MD is Attending Physician. cp 22:11 Triage completed. 22:45 Bed in low position. Call light in reach. Side rails up X 1. Client placed on mb9 continuous cardiac and pulse oximetry monitoring. NIBP monitoring applied. 23:55 No provider procedures requiring assistance completed. Patient did not have IV access mb9 during this emergency room visit. Administered Medications: No medications were administered Medication: 23:54 VIS not applicable for this client. mb9 Outcome: 23:40 Discharge ordered by . cp 23:54 Discharged to home ambulatory. mb9 23:54 Condition: stable 23:54 Discharge instructions given to patient, Instructed on discharge instructions, follow up and referral plans. Demonstrated understanding of instructions, follow-up care, medications, Prescriptions given X 2. 23:56 Patient left the ED. mb9 Signatures: Klaudia Mo RN Kris Quintero PA PA cp Gomez, Alice ag3 Dorcas Matias RN RN mb9 Corrections: (The following items were deleted from the chart) 22:11 22:11 Allergies: Bactrim DS; diane contreras
--- NOTE | 2022-07-17 23:41 | EDPHYS ---
Physician Documentation [facility] Name: Sapna De Anda Age: 22 yrs Sex: Female : 2000 Arrival Date: 07/17/2022 Time: 20:55 Bed 11 Private MD: ED Physician Kris John HPI: 07/17 22:15 This 22 yrs old Female presents to ER via Ambulatory with complaints of cp EARRING PROBLEM. 22:15 The patient presents with embedded earring. cp 22:15 The complaints affect the right ear lobe. Onset: The symptoms/episode began/occurred cp today. Associated signs and symptoms: The patient has no apparent associated signs or symptoms. Historical: - Allergies: 22:11 Amoxicillin; kl - PMHx: 22:11 Anemia; kl - PSHx: 22:11 None; kl - Immunization history:: Adult Immunizations not up to date. - Social history:: Smoking status: Patient denies any tobacco usage or history of. ROS: 22:20 ENT: Positive for embedded earring in right ear lobe, Negative for drainage from cp ear(s), sore throat, difficulty swallowing, difficulty handling secretions. 22:20 Constitutional: Negative for chills, fever. cp 22:20 Respiratory: Negative for cough, shortness of breath, wheezing. 22:20 Abdomen/GI: Negative for abdominal pain, nausea, vomiting, and diarrhea. 22:20 Neuro: Negative for altered mental status, headache, weakness. 22:20 All other systems are negative. Exam: 22:25 Constitutional: The patient appears in no acute distress, alert, awake, comfortable, cp non-toxic, well developed, well nourished. 22:25 Head/Face: Normocephalic, atraumatic. cp 22:25 ENT: right ear lobe appears with mild swelling,front part of earring is embedded in skin. 22:25 Chest/axilla: Inspection: normal. 22:25 Cardiovascular: Rate: normal, Rhythm: regular. 22:25 Respiratory: the patient does not display signs of respiratory distress, Respirations: normal, no use of accessory muscles, no retractions, labored breathing, is not present. Vital Signs: 22:09 BP 120 / 95; Pulse 75; Resp 16; Temp 98.1(TE); Pulse Ox 100% on R/A; Weight 44.45 kg kl (R); Height 5 ft. 4 in. (162.56 cm); Pain 5/10; 23:35 BP 118 / 94; Pulse 68; Resp 17; Pulse Ox 99% on R/A; mb9 22:09 Body Mass Index 16.82 (44.45 kg, 162.56 cm) Procedures: 23:35 Foreign Body Removal: metal earring, from the right earlobe, by using a hemostat, area cp anesthetized with 2 mL of 1% lidocaine w/o epi. Dressing: band aid, triple antibiotic, The patient tolerated the removal well. MDM: 22:13 Patient medically screened. [facility] 23:40 Data reviewed: vital signs, nurses notes. cp 23:40 Consideration of Admission/Observation Escalation of care including cp admission/observation considered. Counseling: I had a detailed discussion with the patient and/or guardian regarding: the historical points, exam findings, and any diagnostic results supporting the discharge/admit diagnosis, to return to the emergency department if symptoms worsen or persist or if there are any questions or concerns that arise at home. Response to treatment: the patient's symptoms have resolved after treatment, and as a result, I will discharge patient. Administered Medications: No medications were administered Disposition Summary: 07/17/22 23:40 Discharge Ordered Location: Home cp Problem: new cp Symptoms: are resolved cp Condition: Stable cp Diagnosis - Superficial foreign body of right ear, initial encounter - earring embedded in cp earlobe Followup: cp - With: Private Physician - When: 1 - 2 days - Reason: Worsening of condition Discharge Instructions: - Discharge Summary Sheet cp - Ear Foreign Body cp Forms: - Medication Reconciliation Form cp - Thank You Letter cp - Antibiotic Education cp - Prescription Opioid Use cp Prescriptions: - Cephalexin 500 mg Oral Capsule - take 1 capsule by ORAL route every 8 hours for 10 days; 30 capsule; Refills: 0, cp Product Selection Permitted - Ibuprofen 800 mg Oral Tablet - take 0.5 tablet by ORAL route every 8 hours As needed take with food; 30 cp tablet; Refills: 0, Product Selection Permitted Signatures: Klaudia Mo RN RN Kris Fontenot MD MD cha Page, Corey, PA PA cp Corrections: (The following items were deleted from the chart) 22:11 22:11 Allergies: Bactrim DS; diane contreras
[2022-07-18 00:41] VITALS: TEMP 98.1
[2022-07-18 00:42] VITALS: BP 118/94; O2SAT 99
== END 2022-07-17 23:56 | disposition home or self-care (01) ==
LOC: ER 20:51
PROC: 09C0XZZ Extirpation of Matter from Right External Ear, External Approach (ICD-10-PCS; principal; 2022-07-17)
DX: S00.451A Superficial foreign body of right ear, initial encounter (principal); Z88.1 Allergy status to other antibiotic agents
CPT/HCPCS: 10120; J2001

== ENCOUNTER 2023-12-13 06:52 | Emergency (ER) | payer OTHER, SELFPAY ==
--- OUTSIDE RECORDS SUMMARY | 2023-12-13 06:55 | XMS REPORT | Continuity of Care Document ---
Author Name Unknown Address [address] [facility]. [address] [place] [address] [facility] Address [address] [facility]. [address] [place] [address] Care Team Providers Care Stone Polisher Hand Name Role Phone ARELY WALKER Primary Care Physician Unav JANIS Burnett Attending Clinician UnavailJanis Gutierrez Attending Clinician + [phone] TAO MENDEZ Attending Clinician Unavailable Sanjiv Noriega MD, Candelario Attending Clinician [phone] Phyllis Diaz PA-C Attending Clinician [phone] PHYLLIS DIAZ Attending Clinician Unavailable Pob, Adc Lab Main Attending Clinician Unavailabl e Vtc-Lab Attending Clinician Unavailable Beny Olivas Attending Clinician + [phone] BENY JONES Attending Clinician Unavail able Doctor Unassigned, [place] Attending Clinician U navailable ROSALIO Attending Clinician Unavailable PRACHI HOPE Attending Clinician Unavail able Amber Spaulding MD Attending Clinician Martine Arely Rodriguez MD Attending Clinician [phone] ARELY WALKER Attending Clinician Unavail able Lindsey Leonard Attending Clinician [phone] JANIS INIGUEZ Admitting Clinician UnavailBENY Burkett Admitting Clinician Unavail able ROSALIO Admitting Clinician Unavailable Payers Payer Name Policy Type Policy Number Effective Date Expirati on Date Source [employer] [id number] 2022 00:00:00 Problems Condition Name Condition Details Condition Category Status Onset Date Resolution Date Last Treatment Date Treating Clinician Comments Source Low weight Low weight Disease Active 08-21 00:00: 00 [facility] Influenza A Influenza A Disease Active 08-21 00:00: 00 [facility] UTI (urinary tract infection) UTI (urinary tract infection) Disease Active 2012-06 00:00: 00 [facility] Allergies, Adverse Reactions, Alerts Allergy Name Allergy Type Status Severity Reaction(s) Onset Date Inactive Date Treating Clinician Comments Source AMOXICIL BERT DRUG INGREDI Active High Rash 10-13 00:00: 00 [facility] Amoxicil bert Propensi ty to adverse reaction s Active Shortness of Breath 10-13 00:00: 00 [facility] Social History Social Habit Start Date Stop Date Quantity Comments Source Exposure to SARS-CoV-2 (event) 2022-06-03 00:00:00 2022-06-13 16:12:00 Not sure [facility] Alcohol intake 2022-06-13 00:00:00 2022-06-13 00:00:00 0 /d [facility] Sex Assigned At 2000 00:00:00 2000 00:00:00 [facility] Smoking Status Start Date Stop Date Source Never smoked tobacco [facility] Medications Ordered Medication Name Filled Medication Name Start Date Stop Date Current Medication? Ordering Clinician Indication Dosage Frequency Signature (SIG) Comments Components Source tretinoin 0.05 % cream 06-13 00:00: 00 Yes [id number] Apply to affected area(s) at bedtime. [facility] doxycycline monohydrate 100 mg capsule 06-13 00:00: 00 09-12 04:59 :00 No [id number] 100mg Take 1 capsule by mouth in the morning and 1 capsule in the evening. Do all this for 90 days. [facility] potassium citrate 10 mEq (1,080 mg) SR tablet 9-06 00:00: 00 08-22 00:00 :00 No 1080mg Take 1 tablet by mouth in the morning. [facility] Nitrofurant oin&Nit. Macrocryst (MACROBID) 100 mg capsule 5-12 00:00: 00 Yes [id number] 100mg Take 1 capsule by mouth as needed (post coital infection) . [facility] cetirizine 10 mg tablet 4-20 00:00: 00 01-02 00:00 :00 No [id number] 10mg Take 1 tablet by mouth daily. [facility] hydrocortis one 2.5 % cream 3-02 00:00: 00 01-02 00:00 :00 No [id number] Apply to affected area(s) 2 (two) times daily. [facility] tretinoin 0.05 % cream 2-03 00:00: 00 01-02 00:00 :00 No [id number] Apply to area(s) at bedtime. [facility] clindamycin 1 % gel 2-03 00:00: 00 01-02 00:00 :00 No [id number] Apply to affected area(s) every morning. [facility] amoxicillin -clavulanat e 875-125 mg per tablet 1-24 00:00: 00 01-02 00:00 :00 No [facility] proMETHazin e 25 mg tablet 1-24 00:00: 00 01-02 00:00 :00 No [facility] Vital Signs Vital Name Observation Time Observation Value Comments S ourrodríguez Systolic blood pressure 2022-08-22 21:27:00 116 mm[Hg] [facility] Diastolic blood pressure 2022-08-22 21:27:00 80 mm[Hg] [facility] Heart rate 2022-08-22 21:27:00 111 [facility] Body temperature 2022-08-22 21:26:00 36.78 Joanen [facility] Body height 2022-08-22 21:26:00 170.2 cm [facility] Body weight 2022-08-22 21:26:00 44.861 kg [facility] BMI 2022-08-22 21:26:00 15.49 kg/m2 [facility] Oxygen saturation in Arterial blood by Pulse oximetry 2022-08-22 21:26:00 96 /min [facility] Body height 2022-06-13 22:20:00 170.2 cm [facility] Systolic blood pressure 2022-02-23 20:35:00 117 mm[Hg] [facility] Diastolic blood pressure 2022-02-23 20:35:00 83 mm[Hg] [facility] Heart rate 2022-02-23 20:35:00 85 /min [facility] Body temperature 2022-02-23 20:33:00 36.61 Joanne [facility] Respiratory rate 2022-02-23 20:33:00 16 /min [facility] Body height 2022-02-23 20:33:00 162.6 cm [facility] Body weight 2022-02-23 20:33:00 43.182 kg [facility] BMI 2022-02-23 20:33:00 16.34 kg/m2 [facility] Oxygen saturation in Arterial blood by Pulse oximetry 2022-02-23 20:33:00 97 /min [facility] Systolic blood pressure 2022-01-02 20:25:00 122 mm[Hg] [facility] Diastolic blood pressure 2022-01-02 20:25:00 87 mm[Hg] [facility] Heart rate 2022-01-02 20:25:00 86 /min [facility] Body temperature 2022-01-02 20:23:00 37.06 Joanne [facility] Respiratory rate 2022-01-02 20:23:00 16 /min [facility] Body height 2022-01-02 20:23:00 162.6 cm [facility] Body weight 2022-01-02 20:23:00 43.999 kg [facility] BMI 2022-01-02 20:23:00 16.65 kg/m2 [facility] Oxygen saturation in Arterial blood by Pulse oximetry 2022-01-02 20:23:00 97 /min [place] [facility] Procedures Procedure Date / Time Performed Performing Clinician Source [facility] 2022-09-19 20:56:30 Janis Spencer [facility] PATIENT FINANCIAL POLICY 2022-09-19 20:01:52 Doctor Unassigned, [place] [facility] Encounters Start Date/Time End Date/Time Encounter Type Admission Type Attending Clinicians Care Facility Care Department Encounter ID Source 2022-10-06 00:00:00 2022-10-06 00:00:00 Telephone [facility] 1.2.840.114 350.1.13.10 4.2.7.2.686 [id number] [facility] 2022-09-19 15:02:00 2022-09-19 23:59:00 Outpatient [facility] [id number] [facility] 2022-09-19 15:02:00 2022-09-19 23:59:00 Hospital Encounter Janis Iniguez [facility] 1.2.840.114 350.1.13.10 4.2.7.2.686 [id number] [facility] 2022-09-11 17:22:34 2022-09-11 17:22:34 Outpatient [facility] [id number] Lefty Serna Callum 2022-09-11 13:30:00 2022-09-11 13:30:00 Outpatient [facility] [id number] [facility] 2022-09-05 14:19:25 2022-09-05 14:19:25 Outpatient [facility] [id number] Lefty Nolen 2022-09-04 00:00:00 2022-09-04 00:00:00 Outpatient J[facility]IS [facility] [id number] [facility] 2022-08-22 16:30:00 2022-08-22 16:49:54 Outpatient R [facility]IS [facility] [id number] [facility] 2022-08-22 16:30:00 2022-08-22 16:49:54 Office Visit Janis Iniguez [facility] AND [facility] 1.840.114 350.1.13.10 4.2.7.2.686 [id number] [facility] 2022-08-14 00:00:00 2022-08-14 00:00:00 Telephone Janis Iniguez [facility] 1..114 350.1.13.10 4.2.7.2.686 [id number] [facility] 2022-06-13 16:15:00 2022-06-13 16:30:00 [facility] 1.84.114 350.1.13.10 4.2.7.2.686 [id number] [facility] 2022-06-13 16:15:00 2022-06-13 16:15:00 Outpatient PHYLLIS [facility]AL [facility] [id number] [facility] 2022-02-23 15:30:00 2022-02-23 15:59:25 Outpatient R [facility]IS [facility] [id number] [facility] 2022-02-23 15:30:00 2022-02-23 15:59:25 Office Visit Janis Iniguez [facility] 1.84.114 350.1.13.10 4.2.7.2.686 [id number] [facility] 2022-02-23 15:30:00 2022-02-23 15:30:00 Outpatient R [facility]IS [facility] [id number] [facility] 2022-02-13 08:30:00 2022-02-13 08:45:00 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 Shop Supervisor Visit Pob, Adc Lab [facility] 1.2.840.114 350.1.13.10 4.2.7.2.686 [id number] [facility] 2022-02-13 08:30:00 2022-02-13 08:30:00 Outpatient R [facility]IS [facility] [id number] [facility] 2022-01-20 00:00:00 2022-01-20 00:00:00 Telephone Hira [facility] IALTY [place] AND [facility] 1..114 350.1.13.10 4.2.7.2.686 [id number] [facility] 2022-01-09 09:30:00 2022-01-09 09:45:00 Press Shop Supervisor Visit Pob, Adc Lab Jason Iniguez [facility] 1.840.114 350.1.13.10 4.2.7.2.686 [id number] [facility] 2022-01-09 09:30:00 2022-01-09 09:30:00 Outpatient R [facility] [id number] [facility] 2022-01-09 09:30:00 2022-01-09 09:30:[address] [facility] [id number] [facility] 2022-01-02 16:30:00 2022-01-02 16:45:00 Press Shop Supervisor Visit Vtc-Lab Hira [facility]TY [place] AND [facility] 1..114 350.1.13.10 4.2.7.2.686 [id number] [facility] 2022-01-02 15:30:00 2022-01-02 15:55:54 Office Visit Janis Iniguez [facility] 1.2.840.114 350.1.13.10 4.2.7.2.686 [id number] [facility] 2022-01-02 15:30:00 2022-01-02 15:55:54 Outpatient R [facility] [id number] [facility] 2021-12-26 00:00:00 2021-12-26 00:00:00 Telephone Janis Iniguez [facility]TY [place] [facility] 1.2.840.114 350.1.13.10 4.2.7.2.686 [id number] [facility] 2021-10-19 00:00:00 2021-10-19 00:00:00 Telephone Beny Jones [facility] 1.2.840.114 350.1.13.10 4.2.7.2.686 [id number] [facility] 2021-10-19 00:00:00 2021-10-19 00:00:00 Telephone Beny Jones [facility] 1.2.840.114 350.1.13.10 4.2.7.2.686 [id number] [facility] 2021-10-18 12:46:09 2021-10-18 23:59:00 Outpatient R [facility]Y [facility] [id number] [facility] 2021-10-18 12:46:09 2021-10-18 23:59:00 Hospital Encounter Beny Jones [facility] 1.2.840.114 350.1.13.10 4.2.7.2.686 [id number] [facility] 2021-10-18 00:00:00 2021-10-18 00:00:00 Outpatient [facility] [id number] [facility] 2021-10-13 10:30:00 2021-10-13 10:53:10 Office Visit KarenBeny [facility] 1..840.114 350.1.13.10 4.2.7.2.686 [id number] [facility] 2021-10-13 10:30:00 2021-10-13 10:53:10 Outpatient Lenora JONES [facility] [id number] [facility] 2021-10-13 10:30:00 2021-10-13 10:30:00 Outpatient Lenora HODGESNEAL [facility] [id number] [facility] 2021-10-13 00:00:00 2021-10-13 00:00:00 Orders Only Doctor Unassigned, [place] [facility] 1..840.114 350.1.13.10 4.2.7.2.686 [id number] [facility] 2021-10-03 15:00:00 2021-10-03 15:00:00 Outpatient Lenora HODGESBENY DE [facility] [id number] [facility] 2021-09-23 03:57:00 2021-09-23 03:57:00 Outpatient ALONZO DONAHUE [facility] [id number] [facility] 2021-09-07 00:00:00 2021-09-07 00:00:00 Orders Only Doctor Unassigned, [place] [facility] 1..840.114 350.1.13.10 4.2.7.2.686 [id number] [facility] 2020-10-25 09:40:00 2020-10-25 09:40:00 Outpatient PRACHI [facility] [id number] [facility] 2020-10-02 09:40:00 2020-10-02 09:40:00 Outpatient PRACHI [facility] [id number] [facility] 2020-01-05 10:00:00 2020-01-05 10:00:00 Outpatient Lenora MENDEZ [facility] [id number] [facility] 2019-09-28 00:00:00 2019-09-28 00:00:00 Refill Moy [facility] 1.2.840.114 350.1.13.10 4.2.7.2.686 [id number] [facility] 2019-09-28 00:00:00 2019-09-28 00:00:00 Refill Moy [facility] 1.2.840.114 350.1.13.10 4.2.7.2.686 [id number] 2019-09-19 00:00:00 2019-09-19 00:00:00 Refill Arely Walker [facility] 1.2.840.114 350.1.13.10 4.2.7.2.686 [id number] [facility] 2019-08-04 08:15:44 2019-08-04 08:30:35 Office Visit Arely Walker [facility] 1.2.840.114 350.1.13.10 4.2.7.2.686 [id number] [facility] 2019-08-04 08:20:00 2019-08-04 08:20:00 Outpatient ARELY [facility] [id number] [facility] 2019-07-07 13:13:58 2019-07-07 13:59:59 Office Visit Lindsey López [facility] AND [facility] 1.2.840.114 350.1.13.10 4.2.7.2.686 [id number] [facility] 2019-07-07 00:00:00 2019-07-07 00:00:00 Orders Only Doctor Unassigned, [place] [facility] 1.2.840.114 350.1.13.10 4.2.7.2.686 [id number] [facility]
[2023-12-13] MEDS ORDERED: DIPHENHYDRAMINE 25 MG TAB/CAP ONE (07:44)
[2023-12-13] MEDS ORDERED: FAMOTIDINE 20 MG TAB ONE (07:44)
[2023-12-13] MEDS ORDERED: predniSONE 20 MG TAB ONE (07:44)
[2023-12-13] MEDS ORDERED: NITROFURAN MACRO 100 MG CAP PO ONE (07:45)
--- NOTE | 2023-12-13 08:14 | ER ---
Nurse's Notes [facility] Name: Sapna De Anda Age: 23 yrs Sex: Female : 2000 Arrival Date: 12/13/2023 Time: 06:52 Bed 19 Private MD: Diagnosis: Urticaria, unspecified;Adverse effect of unspecified drugs, medicaments and biological substances-BACTRIM Presentation: 12/12 07:17 Chief complaint: Patient states: rash all over body that began last night, pt states "I aa5 think it's the medication I am currently taking (Bactrim)". 07:17 Coronavirus screen: At this time, the client does not indicate any symptoms associated aa5 with coronavirus-19. Onset of symptoms was December 2023. 07:17 Acuity: ADALBERTO 3 aa5 07:17 Method Of Arrival: Ambulatory aa5 07:17 Ebola Screen: Patient denies travel to an Ebola-affected area in the 21 days before aa5 illness onset. Initial Sepsis Screen: Does the patient meet any 2 criteria? No. Patient's initial sepsis screen is negative. Does the patient have a suspected source of infection? No. Patient's initial sepsis screen is negative. Risk Assessment: Do you want to hurt yourself or someone else? Patient reports no desire to harm self or others. Triage Assessment: 07:18 General: Appears in no apparent distress. uncomfortable, Behavior is calm, cooperative. rs5 Historical: - Allergies: 07:23 Amoxicillin; aa5 - PMHx: 07:23 Anemia; aa5 - PSHx: 07:23 None; aa5 - Immunization history:: Adult Immunizations unknown. - Infectious Disease History:: Denies. - Social history:: Smoking status: Patient denies any tobacco usage or history of. Screenin:18 [facility] ED Fall Risk Assessment (Adult) History of falling in the last 3 months, rs5 including since admission No falls in past 3 months (0 pts) Confusion or Disorientation No (0 pts) Intoxicated or Sedated No (0 pts) Impaired Gait No (0 pts) Mobility Assist Device Used No (0 pt) Altered Elimination No (0 pt) Score/Fall Risk Level 0 - 2 = Low Risk Oriented to surroundings, Maintained a safe environment. Abuse screen: Denies threats or abuse. Nutritional screening: No deficits noted. Tuberculosis screening: No symptoms or risk factors identified. Assessment: 07:18 General: Appears in no apparent distress. uncomfortable, Behavior is calm, cooperative. rs5 Pain: Denies pain. Neuro: Level of Consciousness is awake, alert, obeys commands, Oriented to person, place, time, situation. Cardiovascular: Patient's skin is warm and dry. Respiratory: Airway is patent Respiratory effort is even, unlabored, Respiratory pattern is regular, symmetrical. GI: Abdomen is round non-distended, Abd is soft and non tender X 4 quads. : No signs and/or symptoms were reported regarding the genitourinary system. EENT: No signs and/or symptoms were reported regarding the EENT system. Derm: Skin is intact, red rash noted on pt's arms and legs bilat. pt states "my rash feels a little itchy" pt denies chest pain or SOB. Musculoskeletal: Range of motion: intact in all extremities. 08:15 Reassessment: Patient and/or family updated on plan of care and expected duration. Pain rs5 level reassessed. Patient is alert, oriented x 3, equal unlabored respirations, skin warm/dry/pink. Patient denies pain at this time. Patient states feeling better. Vital Signs: 07:17 BP 117 / 83; Pulse 85; Resp 18 S; Temp 98(O); Pulse Ox 100% on R/A; Weight 44.45 kg aa5 (R); Height 5 ft. 4 in. (R); 08:20 BP 115 / 77; Pulse 80; Resp 16; Pulse Ox 99% on R/A; rs5 07:17 Body Mass Index 16.82 (44.45 kg, 162.56 cm) aa5 ED Course: 06:55 Patient arrived in ED. gm2 06:59 Kris John MD is Attending Physician. nato 07:17 Arm band placed on Patient placed in an exam room, on a stretcher. aa5 07:18 Patient has correct armband on for positive identification. Placed in gown. Bed in low rs5 position. Call light in reach. Side rails up X2. 07:18 No provider procedures requiring assistance completed. rs5 07:24 Triage completed. aa5 07:39 Red Lorenzana RN is Primary Nurse. rs5 08:24 IV discontinued, intact, bleeding controlled, No redness/swelling at site. Pressure rs5 dressing applied. Administered Medications: 07:42 Drug: diphenhydrAMINE PO 50 mg PO once Route: PO; rs5 08:20 Follow up: Response: No adverse reaction rs5 07:42 Drug: Famotidine PO 40 mg PO once Route: PO; rs5 08:20 Follow up: Response: No adverse reaction rs5 07:42 Drug: predniSONE PO 60 mg PO once Route: PO; rs5 08:20 Follow up: Response: No adverse reaction rs5 07:42 Drug: Macrobid PO 100 mg PO once; administer with food Route: PO; rs5 08:20 Follow up: Response: No adverse reaction rs5 Medication: 08:24 VIS not applicable for this client. rs5 Outcome: 08:13 Discharge ordered by . nato 08:24 Discharged to home ambulatory, rs5 08:24 Condition: stable 08:24 Discharge instructions given to patient, family, Instructed on discharge instructions, follow up and referral plans. medication usage, Demonstrated understanding of instructions, follow-up care, medications, Prescriptions given X 4, 08:25 Patient left the ED. rs5 Signatures: Kris John MD MD cha Calderon, Audri, RN RN aa5 Red Lorenzana RN RN rs5 Dawna Iniguez 2 Corrections: (The following items were deleted from the chart) 08:13 08:13 Famotidine PO 40 mg PO rs5 rs5 08:47 08:47 Response: No adverse reaction rs5 rs5
--- NOTE | 2023-12-13 08:14 | EDPHYS ---
Physician Documentation [facility] Name: Sapna De Anda Age: 23 yrs Sex: Female : 2000 Arrival Date: 12/13/2023 Time: 06:52 Bed 19 Private MD: ED Physician Kris John HPI: 12/12 08:08 This 23 yrs old Female presents to ER via Ambulatory with complaints of nato Allergic Reaction, Rash. 08:08 The patient presents with rash, redness of skin. Onset: The symptoms/episode nato began/occurred 1 day(s) ago. Associated signs and symptoms: Pertinent positives: hives. Possible causes: antibiotics, Bactrim. At home the patient or guardian has treated the symptoms with nothing. Severity of symptoms: At their worst the symptoms were mild moderate in the emergency department the symptoms have improved moderately. The patient has not experienced similar symptoms in the past. Historical: - Allergies: 07:23 Amoxicillin; aa5 - PMHx: 07:23 Anemia; aa5 - PSHx: 07:23 None; aa5 - Immunization history:: Adult Immunizations unknown. - Infectious Disease History:: Denies. - Social history:: Smoking status: Patient denies any tobacco usage or history of. ROS: 08:10 Constitutional: Negative for fever, chills, and weight loss, Eyes: Negative for injury, nato pain, redness, and discharge, ENT: Negative for injury, pain, and discharge, Neck: Negative for injury, pain, and swelling, Cardiovascular: Negative for chest pain, palpitations, and edema, Respiratory: Negative for shortness of breath, cough, wheezing, and pleuritic chest pain, Abdomen/GI: Negative for abdominal pain, nausea, vomiting, diarrhea, and constipation, Back: Negative for injury and pain, : Negative for injury, bleeding, discharge, and swelling, MS/Extremity: Negative for injury and deformity, Neuro: Negative for headache, weakness, numbness, tingling, and seizure, Psych: Negative for depression, anxiety, suicide ideation, homicidal ideation, and hallucinations, Allergy/Immunology: Negative for hives, rash, and allergies, Endocrine: Negative for neck swelling, polydipsia, polyuria, polyphagia, and marked weight changes, Hematologic/Lymphatic: Negative for swollen nodes, abnormal bleeding, and unusual bruising, 08:10 Skin: Positive for erythema, hives, Exam: 08:10 Constitutional: This is a well developed, well nourished patient who is awake, alert, nato and in no acute distress. Head/Face: Normocephalic, atraumatic. Eyes: Pupils equal round and reactive to light, extra-ocular motions intact. Lids and lashes normal. Conjunctiva and sclera are non-icteric and not injected. Cornea within normal limits. Periorbital areas with no swelling, redness, or edema. ENT: Nares patent. No nasal discharge, no septal abnormalities noted. Tympanic membranes are normal and external auditory canals are clear. Oropharynx with no redness, swelling, or masses, exudates, or evidence of obstruction, uvula midline. Mucous membranes moist. Neck: Trachea midline, no thyromegaly or masses palpated, and no cervical lymphadenopathy. Supple, full range of motion without nuchal rigidity, or vertebral point tenderness. No Meningismus. Chest/axilla: Normal chest wall appearance and motion. Nontender with no deformity. No lesions are appreciated. Cardiovascular: Regular rate and rhythm with a normal S1 and S2. No gallops, murmurs, or rubs. Normal PMI, no JVD. No pulse deficits. Respiratory: Lungs have equal breath sounds bilaterally, clear to auscultation and percussion. No rales, rhonchi or wheezes noted. No increased work of breathing, no retractions or nasal flaring. Abdomen/GI: Soft, non-tender, with normal bowel sounds. No distension or tympany. No guarding or rebound. No evidence of tenderness throughout. Back: No spinal tenderness. No costovertebral tenderness. Full range of motion. Female : Normal external genitalia. MS/ Extremity: Pulses equal, no cyanosis. Neurovascular intact. Full, normal range of motion. Neuro: Awake and alert, GCS 15, oriented to person, place, time, and situation. Cranial nerves II-XII grossly intact. Motor strength 5/5 in all extremities. Sensory grossly intact. Cerebellar exam normal. Normal gait. Psych: Awake, alert, with orientation to person, place and time. Behavior, mood, and affect are within normal limits. 08:10 Skin: urticaria, Vital Signs: 07:17 BP 117 / 83; Pulse 85; Resp 18 S; Temp 98(O); Pulse Ox 100% on R/A; Weight 44.45 kg aa5 (R); Height 5 ft. 4 in. (R); 08:20 BP 115 / 77; Pulse 80; Resp 16; Pulse Ox 99% on R/A; rs5 07:17 Body Mass Index 16.82 (44.45 kg, 162.56 cm) aa5 MDM: 06:58 Patient medically screened. nato 08:11 Differential diagnosis: allergic reaction, anaphylaxis, angioedema, foreign body or nato airway obstruction urticaria. Data reviewed: vital signs, nurses notes. Consideration of Admission/Observation Escalation of care including admission/observation considered. I considered the following discharge prescriptions or medication management in the emergency department Medications were administered in the Emergency Department. See MAR. Test considered but Not performed: Labs: no labs. Historians other than the Patient: pt well informed. Care significantly affected by the following chronic conditions: anemia. Administered Medications: 07:42 Drug: diphenhydrAMINE PO 50 mg PO once Route: PO; rs5 08:20 Follow up: Response: No adverse reaction rs5 07:42 Drug: Famotidine PO 40 mg PO once Route: PO; rs5 08:20 Follow up: Response: No adverse reaction rs5 07:42 Drug: predniSONE PO 60 mg PO once Route: PO; rs5 08:20 Follow up: Response: No adverse reaction rs5 07:42 Drug: Macrobid PO 100 mg PO once; administer with food Route: PO; rs5 08:20 Follow up: Response: No adverse reaction rs5 Disposition Summary: 12/13/23 08:13 Discharge Ordered Notes: Location: Home nato Problem: new nato Symptoms: have improved nato Condition: Stable nato Diagnosis - Urticaria, unspecified nato - Adverse effect of unspecified drugs, medicaments and biological substances - BACTRIMcha Followup: nato - With: Private Physician - When: 2 - 3 days - Reason: Recheck today's complaints, Continuance of care, Re-evaluation by your physician Discharge Instructions: - Discharge Summary Sheet nato - Hives nato - Rash, Adult nato - Urinary Tract Infection, Adult nato - Rash, Adult, [id number] nato - Hives, [id number] nato Forms: - Medication Reconciliation Form nato - Antibiotic Education nato - Prescription Opioid Use nato - Patient Portal Instructions nato - Leadership Thank You Letter nato Prescriptions: - Benadryl 25 mg Oral Capsule - take 1 capsule ORAL route every 6 hours As needed; 30 tablet; Refills: 0, [facility] Product Selection Permitted - Pepcid 20 mg Oral Tablet - take 1 tablet ORAL route every 12 hours for 10 days; 20 tablet; Refills: 0, [facility] Product Selection Permitted - Prednisone 20 mg Oral Tablet - take 2 tablets ORAL route once daily for 5 days; 10 tablet; Refills: 0, Product [facility] Selection Permitted - Macrobid 100 mg Oral Capsule - take 1 capsule ORAL route every 12 hours for 7 days; 14 capsule; Refills: 0, [facility] Product Selection Permitted Signatures: Kris John MD MD cha Calderon, Audri RN RN aa5 Red Lorenzana RN RN rs5
[2023-12-13 13:41] VITALS: BP 117/83; TEMP 98; O2SAT 100
== END 2023-12-13 08:25 | disposition home or self-care (01) ==
LOC: ER 06:52
DX: L50.9 Urticaria, unspecified (principal); T36.8X5A Adverse effect of other systemic antibiotics, initial encounter
CPT/HCPCS: 99283; J7512

== ENCOUNTER 2024-09-23 17:48 | Emergency (ER) | payer OTHER, SELFPAY ==
--- OUTSIDE RECORDS SUMMARY | 2024-09-23 17:51 | XMS REPORT | Continuity of Care Document ---
Author Name Unknown Address [address] [facility] [address] [place] [address] Organization [facility] Address [address] [place] [address] Care Team Providers Care College Recruiter Name Role Phone PCP, PATIENT DOES NOT HAVE A Primary Care Physic trace Unavailable JANIS INIGUEZ Attending Clinician UnavailJanis Gutierrez Attending Clinician + [phone] TAO MENDEZ Attending Clinician Unavailable Sanjiv Noriega MD, [place] Attending Clinician [phone] Phyllis Diaz PA-C Attending Clinician [phone] PHYLLIS DIAZ Attending Clinician Unavailable Pob, Adc Lab Main Attending Clinician Unavailabl e Vtc-Lab Attending Clinician Unavailable Beny Olivas Attending Clinician + [phone] BENY JONES Attending Clinician Unavail able Doctor Unassigned, [place] Attending Clinician U navailable ROSALIO Attending Clinician Unavailable PRACHI HOPE Attending Clinician Unavail able Amber Spaulding MD Attending Clinician Martine Arely Rodriguez MD Attending Clinician [phone] ARELY WALKER Attending Clinician Unavail able Lindsey Leonard Attending Clinician [phone] JANIS INIGUEZ Admitting Clinician UnavailBENY Burkett Admitting Clinician Unavail able ROSALIO Admitting Clinician Unavailable Payers Payer Name Policy Type Policy Number Effective Date Expirati on Date Source [employer] [id number] 2022 00:00:00 [facility] JARAD [id number] 2013 00:00:00 Problems Condition Name Condition Details Condition Category Status Onset Date Resolution Date Last Treatment Date Treating Clinician Comments Source Low weight Low weight Disease Active 08-21 00:00: 00 [facility] Influenza A Influenza A Disease Active 08-21 00:00: 00 [facility] UTI (urinary tract infection) UTI (urinary tract infection) Disease Active 2012-06 00:00: 00 [facility] Allergies, Adverse Reactions, Alerts Allergy Name Allergy Type Status Severity Reaction(s) Onset Date Inactive Date Treating Clinician Comments Source AMOXICIL BERT DRUG INGREDI Active High Rash 10-13 00:00: 00 [facility] Amoxicil bert Propensi ty to adverse reaction s Active Shortness of Breath 10-13 00:00: 00 [facility] Social History Social Habit Start Date Stop Date Quantity Comments Source Exposure to SARS-CoV-2 (event) 2022-06-03 00:00:00 2022-06-13 16:12:00 Not sure [facility] Alcohol intake 2022-06-13 00:00:00 2022-06-13 00:00:00 0 /d [facility] Sex Assigned At 2000 00:00:00 2000 00:00:00 [facility] Smoking Status Start Date Stop Date Source Never smoked tobacco [facility] Medications Ordered Medication Name Filled Medication Name Start Date Stop Date Current Medication? Ordering Clinician Indication Dosage Frequency Signature (SIG) Comments Components Source tretinoin 0.05 % cream 06-13 00:00: 00 Yes [id number] Apply to affected area(s) at bedtime. [facility] doxycycline monohydrate 100 mg capsule 06-13 00:00: 00 09-12 04:59 :00 No [id number] 100mg Take 1 capsule by mouth in the morning and 1 capsule in the evening. Do all this for [address] days[address] [facility] potassium citrate 10 mEq (1,080 mg) SR tablet 9-06 00:00: 00 08-22 00:00 :00 No 1080mg Take 1 tablet by mouth in the morning. [facility] Nitrofurant oin&Nit. Macrocryst (MACROBID) 100 mg capsule 5-12 00:00: 00 Yes [id number] 100mg Take 1 capsule by mouth as needed (post coital infection) . [facility] cetirizine 10 mg tablet 4-20 00:00: 00 01-02 00:00 :00 No [id number] 10mg Take 1 tablet by mouth daily. [facility] hydrocortis one 2.5 % cream 3-02 00:00: 00 01-02 00:00 :00 No [id number] Apply to affected area(s) 2 (two) times daily. [facility] tretinoin 0.05 % cream 2-03 00:00: 00 01-02 00:00 :00 No [id number] Apply to area(s) at bedtime. [facility] clindamycin 1 % gel 2-03 00:00: 00 01-02 00:00 :00 No [id number] Apply to affected area(s) every morning. [facility] amoxicillin -clavulanat e 875-125 mg per tablet 1-24 00:00: 00 01-02 00:00 :[address] [facility] proMETHazin e 25 mg tablet 1-24 00:00: 00 01-02 00:00 :[address] [facility] Vital Signs Vital Name Observation Time Observation Value Comments S sera Systolic blood pressure 2022-08-22 21:27:00 116 mm[Hg] [facility] Diastolic blood pressure 2022-08-22 21:27:00 80 mm[Hg] [facility] Heart rate 2022-08-22 21:27:00 111 /min [facility] Body temperature 2022-08-22 21:26:00 36.78 Joanne [facility] Body height 2022-08-22 21:26:00 170.2 cm [facility] Body weight 2022-08-22 21:26:00 44.861 kg [facility] BMI 2022-08-22 21:26:00 15.49 kg/m2 [facility] Oxygen saturation in Arterial blood by Pulse oximetry 2022-08-22 21:26:00 96 /min [facility] Body height 2022-06-13 22:20:00 170.2 cm [facility] Systolic blood pressure 2022-02-23 20:35:00 117 mm[Hg] [facility] Diastolic blood pressure 2022-02-23 20:35:00 83 mm[Hg] [facility] Heart rate 2022-02-23 20:35:00 85 /min [facility] Body temperature 2022-02-23 20:33:00 36.61 Joanne [facility] Respiratory rate 2022-02-23 20:33:00 16 /min [facility] Body height 2022-02-23 20:33:00 162.6 cm [facility] Body weight 2022-02-23 20:33:00 43.182 kg [facility] BMI 2022-02-23 20:33:00 16.34 kg/m2 [facility] Oxygen saturation in Arterial blood by Pulse oximetry 2022-02-23 20:33:00 97 /min [facility] Systolic blood pressure 2022-01-02 20:25:00 122 mm[Hg] [facility] Diastolic blood pressure 2022-01-02 20:25:00 87 mm[Hg] [facility] Heart rate 2022-01-02 20:25:00 86 /min [facility] Body temperature 2022-01-02 20:23:00 37.06 Joanne [facility] Respiratory rate 2022-01-02 20:23:00 16 /min [facility] Body height 2022-01-02 20:23:00 162.6 cm [facility] Body weight 2022-01-02 20:23:00 43.999 kg [facility] BMI 2022-01-02 20:23:00 16.65 kg/m2 [facility] Oxygen saturation in Arterial blood by Pulse oximetry 2022-01-02 20:23:00 97 /min [facility] Procedures Procedure Date / Time Performed Performing Clinician Source US RETROPERITONEAL LIMITED 2022-09-19 20:56:30 Janis Spencer [facility] PATIENT FINANCIAL POLICY 2022-09-19 20:01:52 Doctor Unassigned, [place] [facility] Encounters Start Date/Time End Date/Time Encounter Type Admission Type Attending [facility] Care Facility Care Department Encounter ID Source 2024-07-01 13:49:16 2024-07-01 13:49:16 Outpatient SFA [facility] [id number] Lefty Nolen 2024-06-05 09:43:03 2024-06-05 09:43:03 Outpatient SFA SFA [id number] Lefty Nolen 2024-04-30 08:35:44 2024-04-30 08:35:44 Outpatient SFA SFA [id number] Lefty Nolen 2024-04-23 11:07:37 2024-04-23 11:07:37 Outpatient SFA SFA [id number] Lefty Nolen 2024-04-11 13:20:00 2024-04-11 13:20:00 Outpatient R [facility] [id number] [facility] 2022-10-06 00:00:00 2022-10-06 00:00:00 Telephone Janis Iniguez [facility] 1.2.840.114 350.1.13.10 4.2.7.2.[id number] [facility] 2022-09-19 15:02:00 2022-09-19 23:59:00 Outpatient R JANIS INIGUEZ [facility] [id number] [facility] 2022-09-19 15:02:00 2022-09-19 23:59:00 Hospital Encounter Hira, [facility] 1.0.114 350.1.13.10 4.2.7.2.[id number] [facility] 2022-09-11 17:22:34 2022-09-11 17:22:[address] [facility] [id number] Lefty Nolen 2022-09-11 13:30:00 2022-09-11 13:30:00 Outpatient TAO GONZALEZ [facility] [id number] [facility] 2022-09-05 14:19:25 2022-09-05 14:19:25 Outpatient SFA S[facility] [id number] Lefty Nolen 2022-09-04 00:00:00 2022-09-04 00:00:[address] [facility] [id number] [facility] 2022-08-22 16:30:00 2022-08-22 16:49:54 Outpatient JANIS STEVENS [facility] [id number] [facility] 2022-08-22 16:30:00 2022-08-22 16:49:54 Office Visit Hira [facility] 1..114 350.1.13.10 4.2.7.2.[id number] [facility] 2022-08-14 00:00:00 2022-08-14 00:00:00 Telephone Hira Janis [facility] 1..114 350.1.13.10 4.2.7.2.[id number] [facility] 2022-06-13 16:15:00 2022-06-13 16:30:00 Office Visit Candelario Celestin Leah [facility] 1..114 350.1.13.10 4.2.7.2.[id number] [facility] 2022-06-13 16:15:00 2022-06-13 16:15:00 Outpatient R MARK DIAZAH MARK DIAZAH [facility] [id number] [facility] 2022-02-23 15:30:00 2022-02-23 15:59:25 Outpatient R HIRA JANIS [facility] [id number] [facility] 2022-02-23 15:30:00 2022-02-23 15:59:25 Office Visit Janis Iniguez [facility] [place] [facility] 1.114 350.1.13.10 4.2.7.2.[id number] [facility] 2022-02-23 15:30:00 2022-02-23 15:30:00 Outpatient R HIRAJANIS [facility] [id number] [facility] 2022-02-13 08:30:00 2022-02-13 08:45:00 Selling Underwriter Visit Pob, [facility] 1.114 350.1.13.10 4.2.7.2.[id number] [facility] 2022-02-13 08:30:00 2022-02-13 08:30:00 Outpatient R HIRA JANIS [facility] [id number] [facility] 2022-01-20 00:00:00 2022-01-20 00:00:00 Telephone Hira [facility]ALTY [place] [facility] 1.114 350.1.13.10 4.2.7.2.[id number] [facility] 2022-01-09 09:30:00 2022-01-09 09:45:00 Selling Underwriter Visit Pob, [facility] 1.84114 350.1.13.10 4.2.7.2.[id number] [facility] 2022-01-09 09:30:00 2022-01-09 09:30:[address] [facility] [id number] [facility] 2022-01-09 09:30:00 2022-01-09 09:30:[address] [facility] [id number] [facility] 2022-01-02 16:30:00 2022-01-02 16:45:00 Selling Underwriter Visit Vtc-Lab Hira [facility] 1.0.114 350.1.13.10 4.2.7.2.[id number] [facility] 2022-01-02 15:30:00 2022-01-02 15:55:54 Office Visit Hira [facility] [place] [facility] 1..114 350.1.13.10 4.2.7.2.[id number] [facility] 2022-01-02 15:30:00 2022-01-02 15:55:[address] [facility] [id number] [facility] 2021-12-26 00:00:00 2021-12-26 00:00:00 [facility] [place] [facility] 1..114 350.1.13.10 4.2.7.2.[id number] [facility] 2021-10-19 00:00:00 2021-10-19 00:00:00 Telephone Beny Jones [facility] 1.2.114 350.1.13.10 4.2.7.2.[id number] [facility] 2021-10-19 00:00:00 2021-10-19 00:00:00 Telephone KarenBeny gonzalez Raquel [facility] 1.2.840.114 350.1.13.10 4.2.7.2.[id number] [facility] 2021-10-18 12:46:09 2021-10-18 23:59:00 Outpatient R KARENBENY GONZALEZ [facility] [id number] [facility] 2021-10-18 12:46:09 2021-10-18 23:59:00 Hospital Encounter KarenBeny gonzalez Raquel [facility] 1.2.840.114 350.1.13.10 4.2.7.2.[id number] [facility] 2021-10-18 00:00:00 2021-10-18 00:00:00 Outpatient R KARENBENY [facility] [id number] [facility] 2021-10-13 10:30:00 2021-10-13 10:53:10 Office Visit Karen, Beny García [facility] 1.2.840.114 350.1.13.10 4.2.7.2.[id number] [facility] 2021-10-13 10:30:00 2021-10-13 10:53:10 Outpatient Lenora JONES BENY [facility] [id number] [facility] 2021-10-13 10:30:00 2021-10-13 10:30:00 Outpatient Lenora JONES [facility] [id number] [facility] 2021-10-13 00:00:00 2021-10-13 00:00:00 Orders Only Doctor Unassigned, [place] [facility] 1.2.840.114 350.1.13.10 4.2.7.2.[id number] [facility] 2021-10-03 15:00:00 2021-10-03 15:00:00 Outpatient BENY PERES [facility] [id number] [facility] 2021-09-23 03:57:00 2021-09-23 03:57:00 Outpatient ALONZO HUERTA [id number] Dayna salvador [facility] 2021-09-07 00:00:00 2021-09-07 00:00:00 Orders Only Doctor Unassigned, [place] [facility] 1..114 350.1.13.10 4.2.7.2.[id number] [facility] 2020-10-25 09:40:00 2020-10-25 09:40:00 Outpatient PRACHI BROWN [facility] [id number] [facility] 2020-10-02 09:40:00 2020-10-02 09:40:00 Outpatient PRACHI BROWN [facility] [id number] [facility] 2020-01-05 10:00:00 2020-01-05 10:00:00 Outpatient TAO GONZALEZ [facility] [id number] [facility] 2019-09-28 00:00:00 2019-09-28 00:00:00 Porfirio [facility] 1..114 350.1.13.10 4.2.7.2.686 [id number] 2019-09-28 00:00:00 2019-09-28 00:00:00 Porfirio [facility] 1..114 350.1.13.10 4.2.7.2.[id number] [facility] 2019-09-19 00:00:00 2019-09-19 00:00:00 Arely Spears [facility] 1.114 350.1.13.10 4.2.7.2.[id number] [facility] 2019-08-04 08:15:44 2019-08-04 08:30:35 Office Visit Arely Walker [facility] 1.84.114 350.1.13.10 4.2.7.2.[id number] [facility] 2019-08-04 08:20:00 2019-08-04 08:20:00 Outpatient R ARELY WALKER [facility] [id number] [facility] 2019-07-07 13:13:58 2019-07-07 13:59:59 Office Visit Lindsey López [facility] 1.84.114 350.1.13.10 4.2.7.2.[id number] [facility] 2019-07-07 00:00:00 2019-07-07 00:00:00 Orders Only Doctor Unassigned, [place] [facility] 1.840.114 350.1.13.10 4.2.7.2.[id number] [facility] Results Test Description Test Time Test Comments Results Result Co mments Source HERPES SIMPLEX 1/2 AB, IgG [id number] 05:16:39* Test Item Value Reference Range Interpretation Comme nts HERPES SIMPLEX 1 AB, IgG (test code = 70226) 78.700 INDEX SEE BELOW H INTERPRETATION U NITS RANGE ----- ----- NON-REACTIVE INDEX <1.000 REACTIVE INDEX >=1.000 HERPES SIMPLEX 2 AB, IgG (test code = 61696) 0.077 INDEX SEE BELOW INTERPRETATION U NITS RANGE ----- ----- NON-REACTIVE INDEX <1.000 REACTIVE INDEX >=1.000 UNLESS OTHERWISE INDICATED, ALL TESTING PERFORMED AT [facility] [address] [place] [address] OUTSIDE MACHINIST SUPERVISOR: [employer] NUMBER [id number] [place]. [id number] CULTURE, [id number] 12:56:40SPECIMEN NUMBER: [id number] CULTURE, URINE SPECIMEN NUMBER: [id number] SOURCE: URINE REPORT STATUS: FINAL ISOLATE NUMBER 1: ORGANISM: 06/07/2024 >100,000 CFU/ML GRAM NEGATIVE BACILLI IDENTIFICATION: 06/09/2024 ESCHERICHIA COLI E. COLI AMOXICILLIN/CA SENSITIVE <=8/4AMPICILLIN SENSITIVE <=8CEFAZOLIN SENSITIVE <=2CEFTRIAXONE SENSITIVE <=1CIPROFLOXACIN SENSITIVE <=0.25LEVOFLOXACIN SENSITIVE <=0.5NITROFURANTOIN SENSITIVE <=32PIP/TAZOBAC SENSITIVE <=16TOBRAMYCIN SENSITIVE <=4TRIMETH/SULFA SENSITIVE <=2/38 NOTE: NUMBERS DISPLAYED REPRESENT MINIMUM INHIBITORY CONCENTRATION (ANTHONY) WHICH IS EXPRESSED IN MCG/ML. UNLESS OTHERWISE INDICATED, ALL TESTING PERFORMED AT [facility] [address] [place] [address] OUTSIDE MACHINIST SUPERVISOR: BARBY GUALLPA M.D. CLIA NUMBER [id number] [place]. [id number] TEST, THINPREP, IMAGED REFLEX HPV HIGH RISK IF ASC/[id number] 12:41:36* Test Item Value Reference Range Interpretation Comme nts SOURCE: (test code = 8001) Unspecified SLIDES: (test code = 8011) 1 LMP: (test code = 8021) NOT GIVEN SPECIMEN ADEQUACY: (test code = 08405) (NOTE) Satisfactory for evaluation. Endocervical cells/transformation zone component present. INTERPRETATION: (test code = 71908) NILM/NO EPITH. ABNORMALITY;SEE BELOW -- ---- NEGATIVE FOR INTRAEPITHELIAL LESION OR MALIGNANCY (NILM) ------- CYTOTECHNOLOGIS T: (test code = 8101) PAOLA Mae(ASCP)[facility] LOCATION: (test code = 68860) (NOTE) Specimens proces sed and interpreted at [facility], [address] [place] [address], , CLIA: [id number] CPT: (test code = 8140) [address] UNLESS OTHERWISE INDICATED, COMPUTER AIDED AND SECURITY SUPPORT ANALYST SCREENING PERFORMED. The Pap test is a screening test with an inherent, but low probability of error. Your patient should be reminded to consult you immediately if she experiences any suspicious signs or symptoms, regardless of her Pap test result. An alternate report format containing images or consolidated prior Pap history is available as applicable. HPV HIGH RISK IF ASC/LSIL, THINPREP (test code = 46498) CRITERIA NOT MET CT/NG, NAAT, [id number] 11:06:30* Test Item Value Reference Range Interpretation Comme nts CHLAMYDIA, NAAT, THINPREP (test code = 65479) NEGATIVE NEGATIVE A negative resul t does not exclude low level infection, specimensampling error, or collection error. Testing is performed with the [employer] 6800/8800 systems usingreal-time Polymerase Chain Reaction (PCR) method. GONORRHEA, NAAT, THINPREP (test code = 01644) NEGATIVE NEGATIVE A negative resul t does not exclude low level infection, specimensampling error, or collection error. Testing is performed with the [employer] 6800/8800 systems usingreal-time Polymerase Chain Reaction (PCR) method. UNLESS OTHERWISE INDICATED, ALL TESTING PERFORMED AT [facility] [address] [place] [address] OUTSIDE MACHINIST SUPERVISOR: BARBY GUALLPA M.D. CLIA NUMBER [id number] [facility] [place]. [id number] LIPID [id number] 05:34:50* Test Item Value Reference Range Interpretation Comme nts CHOLESTEROL (test code = 2210) 123 MG/DL <200 TRIGLYCERIDES (test code = 2232) 70 MG/DL <150 HDL CHOLESTEROL (test code = 2220) 45 MG/DL >39 CALC LDL CHOL (test code = 2237) 63 MG/DL <100 NOTE: CALCULATED LDL IS BASED ON MATHEUS-MACKAY METHOD WHICHINCLUDES ADJUSTABLE TRIGLYCERIDE:VLDL CHOLESTEROL RATIO.THIS FACTOR VARIES BY MEASURED TRIGLYCERIDE AND NON-HDLCHOLESTEROL CONCENTRATIONS WITH INCREASED CALCULATED LDL SEENIN HIGHER TRIGLYCERIDE OR LOWER NON-HDL SPECIMENS. FOR MOREINFORMATION, SEE CLIENT ANNOUNCEMENT AT [email or web address] /[email or web address] RISK RATIO LDL/HDL (test code = 2238) 1.40 RATIO <3.22 RPR REFLEX TO T. PALLIDUM - [id number] 04:22:32* Test Item Value Reference Range Interpretation Comme nts RPR (test code = 73715) NON-REACTIVE NON-REACTIVE RPR TITER (test code = 3500) NOT INDIC. TITER NOT INDIC. HEPATITIS PANEL, [id number] 03:34:50* Test Item Value Reference Range Interpretation Comments HEPATITIS A TOTAL AB (test code = 2725) REACTIVE NON-REACTIVE A HEPATITIS B SURF AG (test code = 2739) NON-REACTIVE NON-REACTIVE HEP B CORE TOTAL AB (test code = 2729) NON-REACTIVE NON-REACTIVE HEPATITIS B SURFACE AB (test code = 2737) NON-REACTIVE NON-REACTIVE HEPATITIS C ANTIBODY (test code = 4675) NON-REACTIVE NON-REACTIVE INTERPRETATION HEPATITIS A: (test code = 2552) (NOTE) Hepatitis A sero logy consistent with past exposure or previousvaccination to hepatitis A virus. No evidence of current acutehepatitis A infection. INTERPRETATION HEPATITIS B: (test code = 27197) (NOTE) Hepatitis B sero logy shows no evidence of past exposure to orcurrent infection with hepatitis B virus. No evidence of hepatitis Bimmunization is identified. INTERPRETATION HEPATITIS C: (test code = 00881) (NOTE) Hepatitis C sero logy shows no evidence of exposure to hepatitisC virus at this time. It can take up to 12 months after exposure tothe hepatitis C virus for antibodies to become detectable in the blood in certain patients. HIV 1/2 4TH GEN, RFLX [id number] 03:34:50* Test Item Value Reference Range Interpretation Comme nts HIV 1/2 4TH GEN, RFLX CONF ( test code = 3514) NON-REACTIVE NON-REACTIVE HEPATITIS A [id number] 03:34:50* Test Item Value Reference Range Interpretation Comme nts HEPATITIS A IgM (test code = 2728) NON-REACTIVE NON-REACTIVE UNLESS OTHERW ISE INDICATED, ALL TESTING PERFORMED AT [facility] [address] [place] [address] OUTSIDE MACHINIST SUPERVISOR: BARBY GUALLPA M.D. CLIA NUMBER [id number] [facility] [place]. [id number] HEMOGLOBIN [id number] 01:45:46* Test Item Value Reference Range Interpretation Comme nts HEMOGLOBIN A1c (test code = 71148) 4.8 % 4.2-5.6 CBC W/AUTO DIFF WITH [id number] 01:11:06* Test Item Value Reference Range Interpretation Comme nts WBC (test code = 1001) 3.6 K/UL 3.5-11.0 RBC (test code = 1002) 3.86 M/UL 3.80-5.40 HEMOGLOBIN (test code = 1003) 12.1 G/DL 11.5-15.5 HEMATOCRIT (test code = 1004) 37.3 % 34.0-45.0 MCV (test code = 1005) 96.6 fL 80.0-99.0 MCH (test code = 1006) 31.3 PG 25.0-33.0 MCHC (test code = 1007) 32.4 G/DL 31.0-36.0 RDW (test code = 1038) 12.2 % 11.5-15.0 NEUTROPHILS (test code = 1008) 53.2 % LYMPHOCYTES (test code = 1010) 38.8 % MONOCYTES (test code = 1011) 5.2 % EOSINOPHILS (test code = 1012) 2.2 % BASOPHILS (test code = 1013) 0.6 % IMMATURE GRANULOCYTES (test code = 1036) 0.0 % NUCLEATED RBCS (test code = 1065) 0.0 /100 WBC'S See_Comment [Automated MicroEvala ge] The system which generated this result transmitted reference range: 0.0. The reference range was not used to interpret this result as normal/abnormal. PLATELET COUNT (test code = 1015) 251 K/UL 130-400 ABSOLUTE NEUTROPHILS (test code = 1066) 1.93 K/UL 1.50-7.50 ABSOLUTE LYMPHOCYTES (test code = 1067) 1.41 K/UL 1.00-4.00 ABSOLUTE MONOCYTES (test code = 1068) 0.19 K/UL 0.20-1.00 L ABSOLUTE EOSINOPHILS (test code = 1040) 0.08 K/UL 0.00-0.50 ABSOLUTE BASOPHILS (test code = 1069) 0.02 K/UL 0.00-0.20 ABS IMMATURE GRANULOCYTES (test code = 1020) 0.00 K/UL 0.00-0.10 ABS NUCLEATED RBCS (test code = 61763) 0.00 K/UL 0.00-0.11
--- NOTE | 2024-09-23 18:40 | ER ---
Nurse's Notes [facility] Name: Sapna De Anda Age: 24 yrs Sex: Female : 2000 Arrival Date: 09/23/2024 Time: 17:48 Bed DX3 Private MD: Diagnosis: Allergy to peanuts Presentation: 09/23 18:40 Chief complaint: Patient states: ate something that was contaminated with peanut butter cm10 today at 1500. Pt states that she woke up from a nap and started feeling tingling to throat. Received beandryl in route by EMS with resolution of symtoms. Coronavirus screen: Client denies travel out of the [place] in the last 14 days. Ebola Screen: Patient denies travel to an Ebola-affected area in the 21 days before illness onset. Initial Sepsis Screen: Does the patient meet any 2 criteria? No. Patient's initial sepsis screen is negative. Does the patient have a suspected source of infection? No. Patient's initial sepsis screen is negative. Risk Assessment: Do you want to hurt yourself or someone else? Patient reports no desire to harm self or others. Onset of symptoms was September 23, 2024. Care prior to arrival: Medication(s) given: Benadryl IV initiated. 20 GA, in the left antecubital area. 18:40 Method Of Arrival: EMS: [facility] cm10 18:40 Acuity: ADALBERTO 3 cm10 Triage Assessment: 18:46 General: Appears in no apparent distress. comfortable, Behavior is calm, cooperative. cm10 Pain: Denies pain. Neuro: No deficits noted. Level of Consciousness is awake, alert, obeys commands, Oriented to person, place, time, situation, Appropriate for age. Respiratory: No deficits noted. Airway is patent Respiratory effort is even, unlabored, Respiratory pattern is regular, symmetrical. Derm: No deficits noted. Skin is pink, warm \T\ dry. 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 - Infectious Disease History:: Denies. - Social history:: Smoking status: unknown. Screenin:46 [facility] ED Fall Risk Assessment (Adult) History of falling in the last 3 months, cm10 including since admission No falls in past 3 months (0 pts) Confusion or Disorientation No (0 pts) Intoxicated or Sedated No (0 pts) Impaired Gait No (0 pts) Mobility Assist Device Used No (0 pt) Altered Elimination No (0 pt) Score/Fall Risk Level 0 - 2 = Low Risk Oriented to surroundings, Maintained a safe environment, Hourly rounding (assess needs \T\ fall precautionary measures) done. Abuse screen: Denies threats or abuse. Denies injuries from another. Nutritional screening: No deficits noted. Tuberculosis screening: No symptoms or risk factors identified. Assessment: 19:09 Reassessment: Patient appears in no apparent distress at this time. Patient and/or cm10 family updated on plan of care and expected duration. Pain level reassessed. Patient is alert, oriented x 3, equal unlabored respirations, skin warm/dry/pink. Vital Signs: 18:46 BP 112 / 76; Pulse 80; Resp 15; Temp 98.6; Pulse Ox 100% ; Weight 44.45 kg; Height 5 cm10 ft. 4 in. ; Pain 0/10; 18:59 BP 121 / 87; Pulse 72; Resp 15; Pulse Ox 100% on R/A; cm10 18:46 Body Mass Index 16.82 (44.45 kg, 162.56 cm) cm10 18:46 Pain Scale: Adult cm10 ED Course: 18:03 Patient arrived in ED. kb 18:03 [facility] Becker [facility]C [facility] kb 18:03 Kris John MD is Attending Physician. kb 18:41 Triage completed. cm10 18:41 Arm band placed on right wrist. Patient placed in an exam room, on a stretcher. cm10 18:41 Maintain EMS IV. Dressing intact. Good blood return noted. Site clean \T\ dry. Gauge \T\ cm 10 site: 20g right ac. Flushed with 10 mL NS. 18:47 Patient has correct armband on for positive identification. Provided Education on:. cm10 19:08 Darshana Calix, RN is Primary Nurse. cm10 19:08 No provider procedures requiring assistance completed. IV discontinued, intact, cm10 bleeding controlled, No redness/swelling at site. Pressure dressing applied. Administered Medications: 18:59 Drug: Famotidine IVP 20 mg IVP once; dilute with 10 mL 0.9% NaCl; give over 2 minutes cm10 Route: IVP; Site: left antecubital; 19:08 Follow up: Response: No adverse reaction cm10 18:59 Drug: MethylPrednisoLONE IVP 125 mg IVP once Route: IVP; Site: left antecubital; cm10 19:08 Follow up: Response: No adverse reaction cm10 19:01 Drug: Ondansetron IVP 4 mg IVP once; over 2 minutes Route: IVP; Site: left antecubital; cm10 19:08 Follow up: Response: No adverse reaction cm10 Medication: 18:46 VIS not applicable for this client. cm10 Outcome: 18:40 Discharge ordered by MD. duran 19:09 Discharged to home ambulatory, Pt states her coworker is picking her up cm10 19:09 Condition: good 19:09 Discharge instructions given to patient, Instructed on discharge instructions, follow up and referral plans. medication usage, Demonstrated understanding of instructions, follow-up care, medications, Prescriptions given X 2, 19:09 Patient left the ED. cm10 Signatures: Patti Becker, DELVINC JACKIE-Darshana Burton, RN RN cm10
--- NOTE | 2024-09-23 18:40 | EDPHYS ---
Physician Documentation [facility] Name: Sapna De Anda Age: 24 yrs Sex: Female : 2000 Arrival Date: 09/23/2024 Time: 17:48 Bed DX3 Private MD: ED Physician Kris John HPI: 09/23 18:37 This 24 yrs old Female presents to ER via Unassigned with complaints of kb allergic reaction. 18:37 Pt is a 24 year old female who presents for allergic reaction to peanut butter. States kb she has a known allergy to peanuts and ate something that was cross contaminated with PB at 1500 today. States she took a nap and felt tingling in the throat when she woke up so she called 911. EMS gave IV benadryl in route and pt reports resolution of symptoms. . 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 - Infectious Disease History:: Denies. - Social history:: Smoking status: unknown. ROS: 18:37 Constitutional: As per HPI kb Exam: 18:37 Constitutional: This is a well developed, well nourished patient who is awake, alert, kb and in no acute distress. Head/Face: Normocephalic, atraumatic. ENT: Moist Mucous membranes Cardiovascular: Regular rate Respiratory: Respirations even and unlabored. No increased work of breathing. Talking in full sentences Skin: Warm, dry with normal turgor. Normal color. MS/ Extremity: Pulses equal, no cyanosis. Neurovascular intact. Full, normal range of motion. Neuro: Awake and alert, GCS 15, oriented to person, place, time, and situation. Vital Signs: 18:46 BP 112 / 76; Pulse 80; Resp 15; Temp 98.6; Pulse Ox 100% ; Weight 44.45 kg; Height 5 cm10 ft. 4 in. ; Pain 0/10; 18:59 BP 121 / 87; Pulse 72; Resp 15; Pulse Ox 100% on R/A; cm10 18:46 Body Mass Index 16.82 (44.45 kg, 162.56 cm) cm10 18:46 Pain Scale: Adult cm10 MDM: 18:03 Medical Screening Exam initiated kb 18:37 Differential diagnosis: anaphylaxis, angioedema, urticaria. Data reviewed: vital signs, kb nurses notes. Historians other than the Patient: EMS: [facility]. Counseling: I had a detailed discussion with the patient and/or guardian regarding the historical points, exam findings, and any diagnostic results supporting the discharge/admit diagnosis, the need for outpatient follow up, a family practitioner, to return to the emergency department if symptoms worsen or persist or if there are any questions or concerns that arise at home. Administered Medications: 18:59 Drug: Famotidine IVP 20 mg IVP once; dilute with 10 mL 0.9% NaCl; give over 2 minutes cm10 Route: IVP; Site: left antecubital; 19:08 Follow up: Response: No adverse reaction cm10 18:59 Drug: MethylPrednisoLONE IVP 125 mg IVP once Route: IVP; Site: left antecubital; cm10 19:08 Follow up: Response: No adverse reaction cm10 19:01 Drug: Ondansetron IVP 4 mg IVP once; over 2 minutes Route: IVP; Site: left antecubital; cm10 19:08 Follow up: Response: No adverse reaction cm10 Disposition Summary: 09/23/24 18:40 Discharge Ordered Notes: Location: Home kb Condition: Stable kb Diagnosis - Allergy to peanuts kb Followup: kb - With: Emergency Department - When: As needed - Reason: Worsening of condition Followup: kb - With: Private Physician - When: 2 - 3 days - Reason: Recheck today's complaints, Continuance of care, Re-evaluation by your physician Discharge Instructions: - Discharge Summary Sheet kb - Food Allergy, Anys-as-Koel kb Forms: - Medication Reconciliation Form kb - Antibiotic Education kb - Prescription Opioid Use kb - Patient Portal Instructions kb - Leadership Thank You Letter kb - Work release form cm10 Prescriptions: - Pepcid 20 mg Oral Tablet - take 1 tablet ORAL route every 12 hours for 5 days; 10 tablet; Refills: 0, kb Product Selection Permitted - Prednisone 20 mg Oral Tablet - take 1 tablet ORAL route once daily for 5 days; 5 tablet; Refills: 0, Product kb Selection Permitted Signatures: Patti Becker, PADMA MEJIA-Darshana Burton, RN RN cm10
[2024-09-23] MEDS ORDERED: METHYLPREDNISOLONE 125 MG INJ ONE (18:52)
[2024-09-23] MEDS ORDERED: FAMOTIDINE 20 MG/2 ML VIAL IV ONE (18:52)
[2024-09-23] MEDS ORDERED: ONDANSETRON 4 MG/2 ML VIAL ONE (18:54)
[2024-09-23 20:03] VITALS: TEMP 98.6; O2SAT 100
[2024-09-23 20:04] VITALS: BP 121/87
== END 2024-09-23 19:09 | disposition home or self-care (01) ==
LOC: ER 17:48
DX: R20.2 Paresthesia of skin (principal); Z91.010 Allergy to peanuts
CPT/HCPCS: 96374; 96375; 99284; J2405; J2919